=== PATIENT | female | born 1960 | race Hispanic/Latino ===

== ENCOUNTER 2019-07-19 19:08 | Emergency (ER) | payer SELFPAY ==
--- OUTSIDE RECORDS SUMMARY | 2019-07-19 19:11 | XMS REPORT ---
:1960 [facility] [place] [address] Care Team Providers Name Role Phone Unavailable Unavailable Unavailable Problems This patient has no known problems. Allergies, Adverse Reactions, Alerts This patient has no known allergies or adverse reactions. Medications This patient has no known medications. Results Test Description Test Time Test Comments Text Results Atomic Results Result Comments SCR MAMM BILATERAL TALI 2019-06-26 14:21:14 - SCR MAMM BILATERAL TALI CAD CAD DIGITAL DIGITALBILATERAL DIGITAL SCREENING MAMMOGRAM 3D/2D WITH CAD: 06/25/2019CLINICAL: Asymptomatic. Digital breast tomosynthesis was performed in addition to routine CC and MLO views. Current mammographic images were evaluated by either a [employer] M-Vu or a [employer] ImageChecker CAD (computer aided detection system). Comparison is made to exams dated 10/21/2003 mammogram, 10/26/1999, and 09/19/1998 [facility]-. There are scattered fibroglandular tissues in both breasts. No suspicious mass, architectural distortion, malignant type calcification, or lymph node abnormality detected. Breast architecture is stable compared to prior exams.IMPRESSION: NEGATIVEThere is no mammographic evidence of malignancy. Resume annual screening mammography in one year. Mary brasher/arsh:06/26/2019 14:21:14 Shipping Receiving Manager: Savannah Parmar MM, [facility]ography[facility] sent: BIRADS 1-2 Normal Mammogram BI-RADS: 1 Negative
[2019-07-19 20:14] LABS: Absolute Lymphocytes (CBC) 2.1 K/uL (0.7-4.9); Basophils % 0.8 % (0-1.3); Hematocrit 40.2 % (36.0-45.0); Lymphocytes % 32.2 % (15.3-44.8); MPV 9.5 fL (7.6-11.3); Protime INR 0.95
[2019-07-19 20:30] LABS: ALT/SGPT 32 U/L (12-78); AST/SGOT 14 U/L (15-37); Albumin 3.6 g/dL (3.4-5.0); Alkaline Phosphatase 74 U/L (45-117); BUN Blood Urea Nitrogen 14 mg/dL (7-18); Bicarbonate 28 mmol/L (21-32); Bilirubin Direct < 0.1 mg/dL (0-0.2); Bilirubin Total 0.2 mg/dL (0.2-1.0); Glucose Level 228 mg/dL (74-106); Magnesium 2.1 mg/dL (1.8-2.4); NT PRO-BNP 44 pg/mL (<125); Potassium 3.8 mmol/L (3.5-5.1); Protein, Total 7.3 g/dL (6.4-8.2); Sodium Level 138 mmol/L (136-145); Troponin (Emerg Dept Use Only) < 0.02 ng/mL (0.0-0.045)
--- NOTE | 2019-07-19 20:58 | RAD REPORT ---
EXAM DESCRIPTION: Alicia Single View07/19/2019 8:07 pm CLINICAL HISTORY: Chest pain COMPARISON: 2017 FINDINGS: The lungs appear clear of acute infiltrate. The heart is upper limits normal size IMPRESSION: No acute abnormalities displayed
--- NOTE | 2019-07-19 21:11 | EDPHYS ---
Physician Documentation [facility] Name: Khalida Lundberg Age: 59 yrs Sex: Female : 1960 Arrival Date: 07/19/2019 Time: 19:10 Bed 27 Private MD: ED Physician Buzz Gusman HPI: 07/19 21:07 This 59 yrs old Female presents to ER via Ambulatory with complaints of Chest jr8 Pain. 21:07 Onset: The symptoms/episode began/occurred acutely, today. Associated signs and jr8 symptoms: The patient has no apparent associated signs or symptoms. Modifying factors: The patient symptoms are alleviated by nothing, the patient symptoms are aggravated by nothing. The patient has not experienced similar symptoms in the past. The patient has not recently seen a physician. Chest pain that started this morning. Pressure in nature. Started with radiation to jaw and down arm this afternoon. Came to be evaluated at that time . Historical: - Allergies: 19:30 Iodine; ae4 - Home Meds: 19:30 Glucovance 5-500 mg Oral tab 1 tab 2 times per day [Active]; Humulin 70/30 100 unit/mL ae4 (70-30) Sub-Q susp [Active]; losartan 25 mg Oral tab 1 tab once daily [Active]; pantoprazole 40 mg Oral TbEC 1 tab once daily [Active]; - PMHx: 19:30 Diabetes - NIDDM; GERD; Hypertension; ae4 19:33 Myocardial infarction; ae4 - Immunization history:: Flu vaccine is not up to date. - Social history:: Smoking status: Patient/guardian denies using tobacco. - Ebola Screening: : Patient denies travel to an Ebola-affected area in the 21 days before illness onset. ROS: 21:07 Eyes: Negative for injury, pain, redness, and discharge, ENT: Negative for injury, jr8 pain, and discharge, Neck: Negative for injury, pain, and swelling, Respiratory: Negative for shortness of breath, cough, wheezing, and pleuritic chest pain, Abdomen/GI: Negative for abdominal pain, nausea, vomiting, diarrhea, and constipation, Back: Negative for injury and pain, MS/Extremity: Negative for injury and deformity, Skin: Negative for injury, rash, and discoloration, Neuro: Negative for headache, weakness, numbness, tingling, and seizure. 21:07 Cardiovascular: Positive for chest pain, Negative for edema, orthopnea, palpitations, paroxysmal nocturnal dyspnea. Exam: 21:07 Eyes: Pupils equal round and reactive to light, extra-ocular motions intact. Lids and jr8 lashes normal. Conjunctiva and sclera are non-icteric and not injected. Cornea within normal limits. Periorbital areas with no swelling, redness, or edema. ENT: Nares patent. No nasal discharge, no septal abnormalities noted. Tympanic membranes are normal and external auditory canals are clear. Oropharynx with no redness, swelling, or masses, exudates, or evidence of obstruction, uvula midline. Mucous membranes moist. Neck: Trachea midline, no thyromegaly or masses palpated, and no cervical lymphadenopathy. Supple, full range of motion without nuchal rigidity, or vertebral point tenderness. No Meningismus. Cardiovascular: Regular rate and rhythm with a normal S1 and S2. No gallops, murmurs, or rubs. Normal PMI, no JVD. No pulse deficits. Respiratory: Lungs have equal breath sounds bilaterally, clear to auscultation and percussion. No rales, rhonchi or wheezes noted. No increased work of breathing, no retractions or nasal flaring. Abdomen/GI: Soft, non-tender, with normal bowel sounds. No distension or tympany. No guarding or rebound. No evidence of tenderness throughout. Back: No spinal tenderness. No costovertebral tenderness. Full range of motion. Skin: Warm, dry with normal turgor. Normal color with no rashes, no lesions, and no evidence of cellulitis. MS/ Extremity: Pulses equal, no cyanosis. Neurovascular intact. Full, normal range of motion. Neuro: Awake and alert, GCS 15, oriented to person, place, time, and situation. Cranial nerves II-XII grossly intact. Motor strength 5/5 in all extremities. Sensory grossly intact. Cerebellar exam normal. Normal gait. Vital Signs: 19:27 BP 146 / 98; Pulse 75; Resp 18; Temp 98.1(O); Pulse Ox 98% on R/A; Weight 97.07 kg (R); ae4 20:30 BP 106 / 70; Pulse 70; Resp 22; Pulse Ox 98% on R/A; aj1 MDM: 19:38 Patient medically screened. jr8 21:07 Data reviewed: vital signs, nurses notes, lab test result(s), EKG, radiologic studies, jr8 plain films. Data interpreted: Pulse oximetry: on room air is 98 %. Interpretation: normal. Counseling: I had a detailed discussion with the patient and/or guardian regarding: the historical points, exam findings, and any diagnostic results supporting the discharge/admit diagnosis, lab results, radiology results. 21:21 ED course: Discussed with patient that although her first rounds of cardiac enzymes jr8 were normal and all other blood work, imaging, and EKG were without acute findings. Still recommend admission to fully r/o cardiac related chest pain. Patient stated that her pain is completely resolved and needs to go home to take care of her mother. Understands potential risk but would come back if worse. 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 07/19 19:37 Order name: Basic Metabolic Panel; Complete Time: 21:05 07/19 19:37 Order name: CBC with Diff; Complete Time: 21:07/19 19:37 Order name: LFT's; Complete Time: 21:05 07/19 19:37 Order name: Magnesium; Complete Time: 21:05 07/19 19:37 Order name: NT PRO-BNP; Complete Time: 21:05 07/19 19:37 Order name: PT-INR; Complete Time: 21:05 07/19 19:37 Order name: Troponin (emerg Dept Use Only); Complete Time: 21:05 07/19 19:37 Order name: XRAY Chest (1 view); Complete Time: 21:05 07/19 19:37 Order name: Cardiac monitoring; Complete Time: 20:07/19 19:37 Order name: EKG - Nurse/Tech; Complete Time: 20:07/19 19:37 Order name: IV Saline Lock; Complete Time: 20:07/19 19:37 Order name: Labs collected and sent; Complete Time: 20:07/19 19:37 Order name: O2 Per Protocol; Complete Time: 20:07/19 19:37 Order name: O2 Sat Monitoring; Complete Time: 20: Administered Medications: No medications were administered Disposition: 07/19/19 21:21 Discharged to Home. Impression: Chest pain, unspecified. - Condition is Stable. - Discharge Instructions: Nonspecific Chest Pain. - Medication Reconciliation Form, Thank You Letter, Antibiotic Education, Prescription Opioid Use form. - Follow up: Benito Downs MD; When: 24 Hours; Reason: Recheck today's complaints, Continuance of care, Re-evaluation by your physician. - Problem is new. - Symptoms are resolved. Signatures: Dispatcher [employer] EDMS Arabella Chang RN RN aj1 Ginny Ely RN RN fc Sha Dinh PA PA jr8 Héctor Langley RN RN ae4 Corrections: (The following items were deleted from the chart) 21:18 21:11 Hospitalization Ordered by Sujey Kenney MD for Observation. Preliminary jr8 diagnosis is Chest pain, unspecified. Bed requested for Telemetry/MedSurg (observation). Status is Observation. Condition is Stable. Problem is new. Symptoms are unchanged. UTI on Admission? No. jr8 21:24 21:07 Counseling: I had a detailed discussion with the patient and/or guardian jr8 regarding: the historical points, exam findings, and any diagnostic results supporting the discharge/admit diagnosis, lab results, radiology results, the need for further work-up and treatment in the hospital, jr8 22:13 21:21 07/19/2019 21:21 Discharged to Home. Impression: Chest pain, unspecified. fc Condition is Stable. Forms are Medication Reconciliation Form, Thank You Letter, Antibiotic Education, Prescription Opioid Use. Follow up: Bneito Downs; When: 24 Hours; Reason: Recheck today's complaints, Continuance of care, Re-evaluation by your physician. Problem is new. Symptoms are resolved. jr8
--- NOTE | 2019-07-19 21:11 | ER ---
Nurse's Notes [facility] Name: Khalida Lundberg Age: 59 yrs Sex: Female : 1960 Arrival Date: 07/19/2019 Time: 19:10 Bed 27 Private MD: Diagnosis: Chest pain, unspecified Presentation: 07/19 19:30 Presenting complaint: Patient states: Patient states she has been having chest pain for ae4 the last 3 days and it has increased today. Reports pain radiates to left jaw. Transition of care: patient was not received from another setting of care. Onset of symptoms was July 17, 2019. Risk Assessment: Do you want to hurt yourself or someone else? Patient reports no desire to harm self or others. Care prior to arrival: Medication(s) given: Patient took 12.5 of metoprolol and 2 "baby aspirin". 19:30 Method Of Arrival: Ambulatory ae4 19:30 Acuity: TEVIN 2 ae4 19:34 Initial Sepsis Screen: Does the patient meet any 2 criteria? No. Patient's initial aj1 sepsis screen is negative. Does the patient have a suspected source of infection? Yes:. Triage Assessment: 19:27 General: Appears in no apparent distress. uncomfortable, obese, Behavior is ae4 cooperative, anxious. Pain: Complains of pain in xyphoid area and mid-sternal area Pain radiates to chest, suprasternal notch, left submandibular area and left sternocleidomastoid Pain currently is 7 out of 10 on a pain scale. Neuro: Level of Consciousness is awake, alert, obeys commands, Oriented to person, place, time, situation. Cardiovascular: Patient's skin is warm and dry. Respiratory: Airway is patent Respiratory effort is even, unlabored, Respiratory pattern is regular, symmetrical, Breath sounds are clear bilaterally. GI: Reports nausea. Historical: - Allergies: 19:30 Iodine; ae4 - Home Meds: 19:30 Glucovance 5-500 mg Oral tab 1 tab 2 times per day [Active]; Humulin 70/30 100 unit/mL ae4 (70-30) Sub-Q susp [Active]; losartan 25 mg Oral tab 1 tab once daily [Active]; pantoprazole 40 mg Oral TbEC 1 tab once daily [Active]; - PMHx: 19:30 Diabetes - NIDDM; GERD; Hypertension; ae4 19:33 Myocardial infarction; ae4 - Immunization history:: Flu vaccine is not up to date. - Social history:: Smoking status: Patient/guardian denies using tobacco. - Ebola Screening: : Patient denies travel to an Ebola-affected area in the 21 days before illness onset. Screenin:34 Abuse screen: Denies threats or abuse. Denies injuries from another. Nutritional aj1 screening: No deficits noted. Tuberculosis screening: No symptoms or risk factors identified. 22:10 Fall Risk mg2 Assessment: 19:34 General: Appears in no apparent distress. comfortable, Behavior is calm, cooperative, aj1 appropriate for age. Pain: Complains of pain in mid-sternal area Pain radiates to left sternocleidomastoid and left submandibular area and suprasternal notch Pain currently is 7 out of 10 on a pain scale. Quality of pain is described as aching, Pain began 2-3 days ago. Neuro: Level of Consciousness is awake, alert, obeys commands, Oriented to person, place, time, situation, Speech is normal, Facial symmetry appears normal. Cardiovascular: Reports chest pain, Heart tones S1 S2 present Patient's skin is warm and dry. Respiratory: Airway is patent Respiratory effort is even, unlabored, Respiratory pattern is regular, symmetrical, Breath sounds are clear bilaterally. Denies cough, shortness of breath. GI: No signs and/or symptoms were reported involving the gastrointestinal system. : No signs and/or symptoms were reported regarding the genitourinary system. EENT: No signs and/or symptoms were reported regarding the EENT system. Derm: No signs and/or symptoms reported regarding the dermatologic system. Skin is pink, warm \\T\\ dry. normal. Musculoskeletal: No signs and/or symptoms reported regarding the musculoskeletal system. Circulation, motion, and sensation intact. 20:30 Reassessment: Patient appears in no apparent distress at this time. No changes from aj1 previously documented assessment. Patient and/or family updated on plan of care and expected duration. Pain level reassessed. Patient is alert, oriented x 3, equal unlabored respirations, skin warm/dry/pink. 21:55 Reassessment: Patient appears in no apparent distress at this time. mg2 Vital Signs: 19:27 BP 146 / 98; Pulse 75; Resp 18; Temp 98.1(O); Pulse Ox 98% on R/A; Weight 97.07 kg (R); ae4 20:30 BP 106 / 70; Pulse 70; Resp 22; Pulse Ox 98% on R/A; aj1 ED Course: 19:10 Patient arrived in ED. as 19:20 EKG completed in triage. Results shown to MD. ae4 19:20 Arm band placed on left wrist. ae4 19:32 Triage completed. ae4 19:32 Patient maintains SpO2 saturation greater than 95% on room air. ae4 19:34 Arabella Chang, RN is Primary Nurse. aj1 19:34 Patient has correct armband on for positive identification. personnel monitor on. Pulse aj1 ox on. NIBP on. 19:34 No provider procedures requiring assistance completed. aj1 19:37 Sha Dinh PA is PHCP. jr8 19:37 Buzz Gusman MD is Attending Physician. jr8 20:06 XRAY Chest (1 view) In Process Unspecified. EDMS 21:11 Sujey Kenney MD is Hospitalizing Provider. jr8 21:19 Benito Downs MD is Referral Physician. jr8 22:10 IV discontinued, intact, bleeding controlled, No redness/swelling at site. Pressure mg2 dressing applied. Administered Medications: No medications were administered Outcome: 21:11 Decision to Hospitalize by Provider. jr8 21:21 Discharge ordered by MD. jr8 22:10 Discharged to home ambulatory. mg2 22:10 Condition: stable 22:10 Discharge instructions given to patient, Instructed on discharge instructions, follow mg2 up and referral plans. Demonstrated understanding of instructions, follow-up care. 22:13 Patient left the ED. fc Signatures: Dispatcher [employer] EDMS Arabella Chang, RN RN aj1 Ginny Ely RN RN fc Gemma Chavez as Sha Dinh PA PA jr8 Mark Matos RN RN mg2 Héctor Langley RN RN ae4 Corrections: (The following items were deleted from the chart) 19:26 19:26 EKG completed in triage. Results shown to MD. ae4 ae4
[2019-07-19 22:17] VITALS: TEMP 98.1; O2SAT 98
[2019-07-19 22:18] VITALS: BP 106/70
--- NOTE | 2019-07-21 14:23 | EKG ---
Test Date: 2019-07-19 Test Time: 19:23:56 Dulser: JAJA MEASUREMENT RESULTS: Intervals: Rate: 73 LA: 140 QRSD: 92 QT: 382 QTc: 420 [place]: P: 28 LA: 140 QRS: -5 T: -5 INTERPRETIVE STATEMENTS: Normal sinus rhythm Cannot rule out Anterior infarct, age undetermined Abnormal ECG Compared to ECG 02/12/2016 19:51:28 Myocardial infarct finding now present Electronically Signed On 07-21-19 14:19:33 FUR EXAMINER by Emerson Joshi
== END 2019-07-19 22:13 | disposition home or self-care (01) ==
LOC: ER 19:08
DX: R07.9 Chest pain, unspecified (principal); I10 Essential (primary) hypertension; E11.9 Type 2 diabetes mellitus without complications; I25.2 Old myocardial infarction; Z79.4 Long term (current) use of insulin; Z91.048 Other nonmedicinal substance allergy status
CPT/HCPCS: 36415; 71045; 80048; 80076; 83735; 83880; 84484; 85025; 85610; 93005; 99284

== ENCOUNTER 2019-11-19 09:03 | Emergency (ER) | payer SELFPAY ==
--- OUTSIDE RECORDS SUMMARY | 2019-11-19 09:06 | XMS REPORT ---
:1960 [facility] [place] [address] Care Team Providers Name Role Phone Unavailable [...] mammographic images were evaluated by either a [employer] M-Vu or a [employer] ImageChecker CAD (computer aided detection system). Comparison is made to exams dated 10/21/2003 mammogram, 10/26/1999, and 09/19/1998 [facility]-. There are scattered fibroglandular tissues in both breasts. No suspicious mass, architectural distortion, malignant type calcification, or lymph node abnormality detected. Breast architecture is stable compared to prior exams.IMPRESSION: NEGATIVEThere is no mammographic evidence of malignancy. Resume annual screening mammography in one year. Mary brasher/arsh:06/26/2019 14:21:14 Distributor Advertising Material: Savannah Parmar MM, [facility]ography[facility] sent: BIRADS 1-2 Normal Mammogram BI-RADS: 1 Negative
--- NOTE | 2019-11-19 10:15 | ER ---
Nurse's Notes [facility] Name: Khalida Lundberg Age: 59 yrs Sex: Female : 1960 Arrival Date: 11/19/2019 Time: 09:04 Bed 15 Private MD: Estrada Fitch R Diagnosis: Acute pharyngitis Presentation: 11/18 09:27 Chief complaint: Patient states: Sore throat, body aches and BLAIR that began 3 days ago. ss Coronavirus screen: Patient reports a subjective fever or greater than 100.4F, or cough, or shortness of breath, or difficulty breathing. Patient denies travel on a cruise ship or to a country the [facility] currently lists as an affected area. Patient denies contact with known and/or suspected case of COVID-19. Ebola Screen: Patient denies exposure to infectious person. Patient denies travel to an Ebola-affected area in the 21 days before illness onset. Initial Sepsis Screen: Does the patient meet any 2 criteria? No. Patient's initial sepsis screen is negative. Does the patient have a suspected source of infection? No. Patient's initial sepsis screen is negative. Risk Assessment: Do you want to hurt yourself or someone else? Patient reports no desire to harm self or others. 09:27 Method Of Arrival: Ambulatory 09:27 Acuity: TEVIN 4 ss Historical: - Allergies: 09:28 Iodine; ss - PMHx: 09:28 Diabetes - NIDDM; GERD; Hypertension; Myocardial infarction; ss - Immunization history:: Adult Immunizations up to date. - Social history:: Smoking status: Patient denies any tobacco usage or history of. Screenin:56 Abuse screen: Denies threats or abuse. Denies injuries from another. Nutritional ph screening: No deficits noted. Tuberculosis screening: No symptoms or risk factors identified. Fall Risk None identified. Assessment: 10:00 General: Appears in no apparent distress. comfortable, well groomed, Behavior is calm, ph cooperative, appropriate for age, Denies fever, chills. Pain: Complains of pain in head and throat. Neuro: Level of Consciousness is awake, alert, obeys commands, Oriented to person, place, time, situation. Cardiovascular: Capillary refill < 3 seconds in bilateral fingers Patient's skin is warm and dry. Respiratory: Reports cough that is Airway is patent Respiratory effort is even, unlabored, Respiratory pattern is regular, symmetrical, Breath sounds are clear bilaterally. Denies shortness of breath. GI: No signs and/or symptoms were reported involving the gastrointestinal system. EENT: Throat is reddened bilaterally Reports pain when swallowing. Derm: Skin is intact, is healthy with good turgor, Skin is pink, warm \T\ dry. Musculoskeletal: Circulation, motion, and sensation intact. Range of motion: intact in all extremities. Vital Signs: 09:27 BP 114 / 86; Pulse 80; Resp 16; Temp 97.6(TE); Pulse Ox 96% on R/A; Weight 95.25 kg; ss Height 5 ft. 1 in. (154.94 cm); Pain 6/10; 10:40 BP 117 / 82; Pulse 78; Resp 18; Temp 97.8; Pulse Ox 98% on R/A; ph 09:27 Body Mass Index 39.68 (95.25 kg, 154.94 cm) ED Course: 09:04 Patient arrived in ED. am2 09:05 Estrada Fitch MD is Private Physician. am2 09:06 [facility]etha Lawson FNP-C [facility]. snw 09:06 Buzz Gusman MD is Attending Physician. snw 09:28 Triage completed. ss 09:56 Zandra Elliott, RN is Primary Nurse. ph 09:56 Arm band placed on Patient placed in an exam room, on a stretcher. ph 09:57 Patient has correct armband on for positive identification. Bed in low position. Call ph light in reach. Side rails up X 1. Pulse ox on. NIBP on. 10:13 Estrada Fitch MD is Referral Physician. snw 10:40 No provider procedures requiring assistance completed. Patient did not have IV access ph during this emergency room visit. Administered Medications: No medications were administered Outcome: 10:14 Discharge ordered by . snw 10:40 Discharged to home ambulatory. ph 10:40 Condition: good 10:40 Discharge instructions given to patient, Instructed on discharge instructions, follow up and referral plans. medication usage, Demonstrated understanding of instructions, follow-up care, medications, Prescriptions given X 1. 10:41 Patient left the ED. ph Signatures: Letha Lawson FNP-C FNP-Csnw Andreea Martin RN RN Zandra Elliott RN RN Rody Zimmerman am2 Corrections: (The following items were deleted from the chart) Chief complaint: Patient states: Sore throat, body aches and BLAIR that began 3 days ss ago : Coronavirus screen: Patient denies fever greater than 100.4F, cough, shortness of ss breath, or difficulty breathing. Proceed with normal triage process. ss
--- NOTE | 2019-11-19 10:15 | EDPHYS ---
Physician Documentation [facility] Name: Khalida Lundberg Age: 59 yrs Sex: Female : 1960 Arrival Date: 11/19/2019 Time: 09:04 Bed 15 Private MD: Estrada Fitch R ED Physician Buzz Gusman HPI: 11/18 09:58 This 59 yrs old Female presents to ER via Ambulatory with complaints of Cough, snw Sore Throat, Body ache, Headache. 09:58 The patient or guardian reports sore throat, headache . Onset: The symptoms/episode snw began/occurred suddenly, 3 day(s) ago, and became persistent. Modifying factors: The symptoms are alleviated by nothing. Associated signs and symptoms: Pertinent positives: sore throat. It is unknown whether or not the patient has had similar symptoms in the past. The patient has not recently seen a physician. Historical: - Allergies: 09:28 Iodine; ss - PMHx: 09:28 Diabetes - NIDDM; GERD; Hypertension; Myocardial infarction; ss - Immunization history:: Adult Immunizations up to date. - Social history:: Smoking status: Patient denies any tobacco usage or history of. ROS: 09:58 Eyes: Negative for injury, pain, redness, and discharge. snw 09:58 Neck: Negative for injury, pain, and swelling, Cardiovascular: Negative for chest pain, palpitations, and edema, Respiratory: Negative for shortness of breath, cough, wheezing, and pleuritic chest pain, Abdomen/GI: Negative for abdominal pain, nausea, vomiting, diarrhea, and constipation, Back: Negative for injury and pain, : Negative for injury, bleeding, discharge, and swelling, MS/Extremity: Negative for injury and deformity, Skin: Negative for injury, rash, and discoloration. 09:58 Constitutional: Positive for body aches, fatigue, malaise. 09:58 ENT: Positive for sore throat. 09:58 Neuro: Positive for headache. Exam: 09:58 Constitutional: This is a well developed, well nourished patient who is awake, alert, snw and in no acute distress. Head/Face: Normocephalic, atraumatic. Eyes: Pupils equal round and reactive to light, extra-ocular motions intact. Lids and lashes normal. Conjunctiva and sclera are non-icteric and not injected. Cornea within normal limits. Periorbital areas with no swelling, redness, or edema. ENT: Nares patent. No nasal discharge, no septal abnormalities noted. Tympanic membranes are normal and external auditory canals are clear. Oropharynx with no redness, swelling, or masses, exudates, or evidence of obstruction, uvula midline. Mucous membranes moist. Neck: Trachea midline, no thyromegaly or masses palpated, and no cervical lymphadenopathy. Supple, full range of motion without nuchal rigidity, or vertebral point tenderness. No Meningismus. Chest/axilla: Normal chest wall appearance and motion. Nontender with no deformity. No lesions are appreciated. Cardiovascular: Regular rate and rhythm with a normal S1 and S2. No gallops, murmurs, or rubs. Normal PMI, no JVD. No pulse deficits. Respiratory: Lungs have equal breath sounds bilaterally, clear to auscultation and percussion. No rales, rhonchi or wheezes noted. No increased work of breathing, no retractions or nasal flaring. Abdomen/GI: Soft, non-tender, with normal bowel sounds. No distension or tympany. No guarding or rebound. No evidence of tenderness throughout. Back: No spinal tenderness. No costovertebral tenderness. Full range of motion. Skin: Warm, dry with normal turgor. Normal color with no rashes, no lesions, and no evidence of cellulitis. MS/ Extremity: Pulses equal, no cyanosis. Neurovascular intact. Full, normal range of motion. Neuro: Awake and alert, GCS 15, oriented to person, place, time, and situation. Cranial nerves II-XII grossly intact. Motor strength 5/5 in all extremities. Sensory grossly intact. Cerebellar exam normal. Normal gait. Vital Signs: 09:27 BP 114 / 86; Pulse 80; Resp 16; Temp 97.6(TE); Pulse Ox 96% on R/A; Weight 95.25 kg; ss Height 5 ft. 1 in. (154.94 cm); Pain 6/10; 10:40 BP 117 / 82; Pulse 78; Resp 18; Temp 97.8; Pulse Ox 98% on R/A; ph 09:27 Body Mass Index 39.68 (95.25 kg, 154.94 cm) ss MDM: 09:23 Patient medically screened. snw 10:15 Data reviewed: vital signs, nurses notes. Data interpreted: Pulse oximetry: on room air snw is 96 %. Interpretation: acceptable. Counseling: I had a detailed discussion with the patient and/or guardian regarding: the historical points, exam findings, and any diagnostic results supporting the discharge/admit diagnosis, the presence of at least one elevated blood pressure reading (>120/80) during this emergency department visit, the need for outpatient follow up, for definitive care, to return to the emergency department if symptoms worsen or persist or if there are any questions or concerns that arise at home. Special discussion: I have referred the patient to see his PCP for further evaluation of high blood pressure. Based on the history and exam findings, there is no indication for further emergent testing or inpatient evaluation. I discussed with the patient/guardian the need to see the primary care provider for further evaluation of the symptoms. 11/18 09:52 Order name: Strep; Complete Time: 10:14 snw 11/18 10:24 Order name: Throat Culture EDMS Administered Medications: No medications were administered Disposition: 11:47 Co-signature as Attending Physician, Buzz Gusman MD. rn Disposition: 11/19/19 10:14 Discharged to Home. Impression: Acute pharyngitis. - Condition is Stable. - Discharge Instructions: Pharyngitis, Rehydration, Adult. - Prescriptions for Zyrtec 10 mg Oral Tablet - take 1 tablet by ORAL route once daily As needed; 20 tablet. - Medication Reconciliation Form, Thank You Letter, Antibiotic Education, Prescription Opioid Use form. - Follow up: Estrada Fitch MD; When: 2 - 3 days; Reason: Recheck today's complaints, Continuance of care, Re-evaluation by your physician. Follow up: Emergency Department; When: As needed; Reason: Worsening of condition. Signatures: Dispatcher [employer] EDMS Letha Lawson, TOUCH UP WORKER-C TOUCH UP WORKER-Csnw Buzz Gusman MD MD rn Smirch, Shelby, RN RN Zandra Smith RN RN ph Corrections: (The following items were deleted from the chart) 10:41 10:14 11/19/2019 10:14 Discharged to Home. Impression: Acute pharyngitis. Condition is ph Stable. Forms are Medication Reconciliation Form, Thank You Letter, Antibiotic Education, Prescription Opioid Use. Follow up: Estrada Fitch; When: 2 - 3 days; Reason: Recheck today's complaints, Continuance of care, Re-evaluation by your physician. Follow up: Emergency Department; When: As needed; Reason: Worsening of condition. snbasilia
[2019-11-19 10:51] VITALS: BP 117/82; TEMP 97.8; O2SAT 98
== END 2019-11-19 10:41 | disposition home or self-care (01) ==
LOC: ER 09:03
DX: J02.9 Acute pharyngitis, unspecified (principal); I10 Essential (primary) hypertension; Z91.048 Other nonmedicinal substance allergy status
CPT/HCPCS: 87070; 87081; 99283

== ENCOUNTER 2020-04-21 14:50 | Emergency (ER) | payer SELFPAY, OTHER ==
--- OUTSIDE RECORDS SUMMARY | 2020-04-21 14:52 | XMS REPORT | Continuity of Care Document ---
:1960 Author Organization [facility] t Address [address] [place] [address] Care Team Providers Name Role Phone Unavailable Unavailable Unavailable Problems This patient has no known problems. Allergies, Adverse Reactions, Alerts This patient has no known allergies or adverse reactions. Medications This patient has no known medications. Procedures This patient has no known procedures. Results Test Description Test Time Test Comments Results Result Sourc e Comments SCR MAMM 2019-06-26 - SCR MAMM BILATERAL BILATERAL TALI 14:21:14 TALI CAD CAD DIGITAL DIGITALBILATERAL DIGITAL SCREENING MAMMOGRAM 3D/2D WITH CAD: 06/25/2019CLINICAL: Asymptomatic. Digital breast tomosynthesis was performed in addition to routine CC and MLO views. Current mammographic images were evaluated by either a Card Isle M-Vu or a Roomoramagic ImageChecker CAD (computer aided detection system). Comparison is made to exams dated 10/21/2003 mammogram, 10/26/1999, and 09/19/1998 [facility]. There are scattered fibroglandular tissues in both breasts. No suspicious mass, architectural distortion, malignant type calcification, or lymph node abnormality detected. Breast architecture is stable compared to prior exams.IMPRESSION: NEGATIVEThere is no mammographic evidence of malignancy. Resume annual screening mammography in one year. Mary brasher/penrad:06/26/2019 14:21:14 Pretzel Packer: Savannah Parmar MM, [facility] sent: BIRADS 1-2 Normal Mammogram BI-RADS: 1 Negative
[2020-04-21 16:59] LABS: Absolute Lymphocytes (CBC) 1.3 K/uL (0.7-4.9); Basophils % 0.4 % (0-1.3); Hematocrit 40.3 % (36.0-45.0); MPV 9.1 fL (7.6-11.3); RBC Red Blood Cell Count 4.61 M/uL (3.86-4.86)
[2020-04-21 17:39] LABS: ALT/SGPT 35 U/L (12-78); AST/SGOT 22 U/L (15-37); Albumin 3.4 g/dL (3.4-5.0); Alkaline Phosphatase 89 U/L (45-117); BUN Blood Urea Nitrogen 10 mg/dL (7-18); Bicarbonate 25 mmol/L (21-32); Bilirubin Direct < 0.1 mg/dL (0-0.2); Bilirubin Total 0.3 mg/dL (0.2-1.0); Ferritin 191.5 ng/mL (8-388); Glucose Level 303 mg/dL (74-106); Lipase 90 U/L (73-393); Potassium 4.2 mmol/L (3.5-5.1); Sodium Level 136 mmol/L (136-145); Troponin (Emerg Dept Use Only) < 0.02 ng/mL (0.0-0.045)
--- NOTE | 2020-04-21 18:15 | RAD REPORT ---
EXAM DESCRIPTION: Alicia Single View04/21/2020 6:00 pm CLINICAL HISTORY: cough COMPARISON: none FINDINGS: Mild bilateral pulmonary opacities. . The heart is normal size IMPRESSION: Mild bilateral pulmonary opacities probably pneumonia
--- NOTE | 2020-04-21 18:57 | EDPHYS ---
Physician Documentation [facility] Name: Khalida Lundberg Age: 59 yrs Sex: Female : 1960 Arrival Date: 04/21/2020 Time: 14:53 Bed 2 Private MD: ED Physician Abdi Kirkland HPI: 04/21 18:22 This 59 yrs old Female presents to ER via Ambulatory with complaints of Fever, kdr Shortness Of Breath, Body Aches. 18:22 The patient reports fever, not measured (subjective). Onset: The symptoms/episode kdr began/occurred gradually, 5 day(s) ago. Modifying factors: there are no obvious modifying factors. Associated signs and symptoms: Pertinent positives: arthralgias, backache, shortness of breath, Change in smell and taste. Severity of symptoms: At their worst the symptoms were mild in the emergency department the symptoms are unchanged. The patient has not experienced similar symptoms in the past. The patient has not recently seen a physician. Historical: - Allergies: 15:00 Iodine; ll1 - PMHx: 15:00 Diabetes - NIDDM; GERD; Hypertension; Myocardial infarction; ll1 - PSHx: 15:00 None; ll1 - Immunization history:: Flu vaccine is not up to date. - Social history:: Smoking status: Patient denies any tobacco usage or history of. Patient/guardian denies using alcohol, street drugs, tobacco products. ROS: 18:22 Constitutional: Negative for weight loss - has had fever and chills Eyes: Negative for kdr injury, pain, redness, and discharge, ENT: Negative for injury, pain, and discharge, Neck: Negative for injury, pain, and swelling, Cardiovascular: Negative for chest pain, palpitations, and edema, Abdomen/GI: Negative for abdominal pain, nausea, vomiting, diarrhea, and constipation, Back: Negative for injury and pain, : Negative for injury, bleeding, discharge, and swelling, MS/Extremity: Negative for injury and deformity, Skin: Negative for injury, rash, and discoloration, Neuro: Negative for headache, weakness, numbness, tingling, and seizure activity. Psych: Negative for depression, anxiety, suicide ideation, homicidal ideation, and hallucinations, Allergy/Immunology: Negative for hives, rash, and allergies, Endocrine: Negative for neck swelling, polydipsia, polyuria, polyphagia, and marked weight changes, Hematologic/Lymphatic: Negative for swollen nodes, abnormal bleeding, and unusual bruising. 18:22 Respiratory: Positive for cough, shortness of breath, Negative for hemoptysis, orthopnea. Exam: 16:50 ECG was reviewed by the Attending Physician. kdr 18:22 Constitutional: This is a well developed, well nourished patient who is awake, alert, kdr and in no acute distress. Head/Face: Normocephalic, atraumatic. Eyes: Pupils equal round and reactive to light, extra-ocular motions intact. Lids and lashes normal. Conjunctiva and sclera are non-icteric and not injected. Cornea within normal limits. Periorbital areas with no swelling, redness, or edema. Neck: Trachea midline, no thyromegaly or masses palpated, and no cervical lymphadenopathy. Supple, full range of motion without nuchal rigidity, or vertebral point tenderness. No Meningismus. Chest/axilla: Normal chest wall appearance and motion. Nontender with no deformity. No lesions are appreciated. Cardiovascular: Regular rate and rhythm with a normal S1 and S2. No gallops, murmurs, or rubs. Normal PMI, no JVD. No pulse deficits. Respiratory: Lungs have equal breath sounds bilaterally, clear to auscultation and percussion. No rales, rhonchi or wheezes noted. No increased work of breathing, no retractions or nasal flaring. Abdomen/GI: Soft, non-tender, with normal bowel sounds. No distension or tympany. No guarding or rebound. No evidence of tenderness throughout. Back: No spinal tenderness. No costovertebral tenderness. Full range of motion. Skin: Warm, dry with normal turgor. Normal color with no rashes, no lesions, and no evidence of cellulitis. MS/ Extremity: Pulses equal, no cyanosis. Neurovascular intact. Full, normal range of motion. Neuro: Awake and alert, GCS 15, oriented to person, place, time, and situation. Cranial nerves II-XII grossly intact. Motor strength 5/5 in all extremities. Sensory grossly intact. Cerebellar exam normal. Normal gait. Psych: Awake, alert, with orientation to person, place and time. Behavior, mood, and affect are within normal limits. Vital Signs: 15:00 BP 132 / 79; Pulse 99; Resp 18; Temp 100.0; Pulse Ox 98% ; Pain 2/10; ll1 16:58 BP 141 / 78; Pulse 92; Resp 18; Pulse Ox 97% on R/A; ph 18:12 BP 126 / 80; Pulse 89; Resp 18; Pulse Ox 97% on R/A; ph 19:35 BP 127 / 82; Pulse 87; Resp 18; Temp 98.9; Pulse Ox 98% on R/A; ph MDM: 18:22 Data reviewed: vital signs, nurses notes, lab test result(s), radiologic studies. kdr Counseling: I had a detailed discussion with the patient and/or guardian regarding: the historical points, exam findings, and any diagnostic results supporting the discharge/admit diagnosis, lab results, radiology results. 18:57 Patient medically screened. kdr 04/21 16:29 Order name: Blood Culture Adult (2) ph 04/21 16:29 Order name: BMP ph 04/21 16:29 Order name: C-Reactive Protein ph 04/21 16:29 Order name: CBC with Diff; Complete Time: 17:31 ph 04/21 16:29 Order name: COVID-19 ph 04/21 16:29 Order name: D-Dimer; Complete Time: 17:31 ph 04/21 16:29 Order name: Ferritin; Complete Time: 17:45 ph 04/21 16:29 Order name: Flu; Complete Time: 18:56 ph 04/21 16:29 Order name: Lactate; Complete Time: 17:31 ph 04/21 16:29 Order name: LFT's; Complete Time: 17:45 ph 04/21 16:29 Order name: Lipase; Complete Time: 17:45 ph 04/21 16:29 Order name: Procalcitonin; Complete Time: 18:56 ph 04/21 16:29 Order name: PT-INR; Complete Time: 17:31 ph 04/21 16:29 Order name: Ptt, Activated; Complete Time: 17:31 ph 04/21 16:29 Order name: Strep; Complete Time: 18:56 ph 04/21 16:29 Order name: Troponin (emerg Dept Use Only); Complete Time: 17:45 ph 04/21 16:29 Order name: CXR XRAY; Complete Time: 18:17 ph 04/21 16:29 Order name: EKG; Complete Time: 16:30 ph 04/21 16:29 Order name: Cardiac monitoring; Complete Time: 17:02 ph 04/21 16:29 Order name: Document PUI#; Complete Time: 17:02 ph 04/21 16:29 Order name: Droplet/Contact Precautions; Complete Time: 16:30 ph 04/21 16:29 Order name: EKG - Nurse/Tech; Complete Time: 17:02 ph 04/21 16:29 Order name: Blood Culture EDKY 04/21 16:29 Order name: Basic Metabolic Panel; Complete Time: 17:45 EDMS 04/21 16:29 Order name: C-Reactive Protein; Complete Time: 17:45 EDKY 04/21 18:25 Order name: Throat Culture EDKY 04/21 16:29 Order name: IV Start; Complete Time: 17:02 ph 04/21 16:29 Order name: Labs collected and sent; Complete Time: 17:02 ph 04/21 16:29 Order name: Notify Health Dept [phone]/ ; Complete Time: 17:02 ph 04/21 16:29 Order name: O2 Per Protocol; Complete Time: 17:01 ph 04/21 16:29 Order name: O2 Sat Monitoring; Complete Time: 17:01 ph EC:50 Rate is 86 beats/min. Rhythm is regular, Normal Sinus Rhythm with No ectopy. QRS Bethany kdr is Normal. [place] interval is normal. QRS interval is normal. QT interval is normal. Clinical impression: Normal ECG. Administered Medications: 19:34 Drug: predniSONE 10 mg Route: PO; ph 19:35 Follow up: Response: No adverse reaction ph 19:35 Drug: AZITHromycin 500 mg Route: PO; ph 19:35 Follow up: Response: No adverse reaction ph Disposition: 04/21/20 18:57 Discharged to Home. Impression: Pneumonia, unspecified organism - COVID test pending, Shortness of breath. - Condition is Stable. - Discharge Instructions: Community-Acquired Pneumonia, Adult, Shortness of Breath, [id number], Cough, Adult, [id number]. - Prescriptions for Zithromax Z- Andriy 250 mg Oral Tablet - take 1 tablet by ORAL route once daily for 4 days; 4 tablet. Albuterol Sulfate 90 mcg/actuation - inhale 1-2 puff by INHALATION route every 4-6 hours; 1 Inhaler. Orapred ODT 10 mg Oral Tablet, Rapid Dissolve - take 1 tablet by ORAL route 2 times per day; 6 tablet. - Medication Reconciliation Form, Thank You Letter, Antibiotic Education form. - Follow up: Private Physician; When: 2 - 3 days; Reason: If symptoms return, Further diagnostic work-up, Recheck today's complaints, Continuance of care, Re-evaluation by your physician. - Problem is an ongoing problem. - Symptoms have improved. - Notes: While on the steroids, you will have to watch your blood sugar often. Signatures: Dispatcher [employer] EDMS Abdi Kirkland MD MD kdr Zandra Elliott RN RN Dallin Naranjo RN RN ll1 Corrections: (The following items were deleted from the chart) 18:57 18:57 04/21/2020 18:57 Discharged to Home. Impression: Pneumonia, unspecified organism kdr - COVID test pending. Condition is Stable. Forms are Medication Reconciliation Form, Thank You Letter, Antibiotic Education, Prescription Opioid Use. Follow up: Private Physician; When: 2 - 3 days; Reason: If symptoms return, Further diagnostic work-up, Recheck today's complaints, Continuance of care, Re-evaluation by your physician. Problem is an ongoing problem. Symptoms have improved. kdr 19:36 18:57 04/21/2020 18:57 Discharged to Home. Impression: Pneumonia, unspecified organism ph - COVID test pending; Shortness of breath. Condition is Stable. Forms are Medication Reconciliation Form, Thank You Letter, Antibiotic Education, Prescription Opioid Use. Follow up: Private Physician; When: 2 - 3 days; Reason: If symptoms return, Further diagnostic work-up, Recheck today's complaints, Continuance of care, Re-evaluation by your physician. Problem is an ongoing problem. Symptoms have improved. kdr
--- NOTE | 2020-04-21 18:57 | ER ---
Nurse's Notes [facility] Name: Khalida Lundberg Age: 59 yrs Sex: Female : 1960 Arrival Date: 04/21/2020 Time: 14:53 Bed 2 Private MD: Diagnosis: Pneumonia, unspecified organism-COVID test pending;Shortness of breath Presentation: 04/21 15:00 Chief complaint: Patient states: Cough, SOB, fever, fatigue, body aches for 5 days. No ll1 taste or smell, is also sick. Coronavirus screen: Client denies travel out of the [place] in the last 14 days. chills, cough unrelated to allergies, difficulty breathing, fatigue, fever, loss of taste or smell, Client presents with at least one sign or symptom that may indicate coronavirus-19. Standard/surgical mask placed on the client. Ebola Screen: Patient denies travel to an Ebola-affected area in the 21 days before illness onset. Initial Sepsis Screen: Does the patient meet any 2 criteria? HR > 90 bpm. No. Patient's initial sepsis screen is negative. Risk Assessment: Do you want to hurt yourself or someone else? Patient reports no desire to harm self or others. Onset of symptoms was April 16, 2020. 15:00 Acuity: TEVIN 3 ll1 15:00 Method Of Arrival: Ambulatory ll1 16:57 Initial Sepsis Screen: Does the patient have a suspected source of infection? Yes: ph Productive cough/pneumonia. Historical: - Allergies: 15:00 Iodine; ll1 - PMHx: 15:00 Diabetes - NIDDM; GERD; Hypertension; Myocardial infarction; ll1 - PSHx: 15:00 None; ll1 - Immunization history:: Flu vaccine is not up to date. - Social history:: Smoking status: Patient denies any tobacco usage or history of. Patient/guardian denies using alcohol, street drugs, tobacco products. Screenin:57 Abuse screen: Denies threats or abuse. Denies injuries from another. Nutritional ph screening: No deficits noted. Tuberculosis screening: No symptoms or risk factors identified. Fall Risk None identified. Assessment: 16:55 General: Appears in no apparent distress. comfortable, obese, well groomed, Behavior is ph calm, cooperative, appropriate for age, Reports chills for fever for > 3 days. Pain: Complains of pain in anterior aspect of left upper chest Is intermittent. Neuro: Level of Consciousness is awake, alert, obeys commands, Oriented to person, place, time, situation. Cardiovascular: Reports chest pain, lightheadedness, shortness of breath, Rhythm is regular Chest pain is located in left anterior chest wall episodes are intermittent is aggravated by breathing. Respiratory: Reports shortness of breath on exertion cough that is persistent Airway is patent Respiratory effort is even, unlabored, Respiratory pattern is regular, symmetrical. GI: No signs and/or symptoms were reported involving the gastrointestinal system. Derm: Skin is intact, is healthy with good turgor, Skin is pink, warm \T\ dry. Musculoskeletal: Circulation, motion, and sensation intact. Range of motion: intact in all extremities. 18:12 Reassessment: Patient appears in no apparent distress at this time. Patient and/or ph family updated on plan of care and expected duration. Pain level reassessed. Patient is alert, oriented x 3, equal unlabored respirations, skin warm/dry/pink. Pt resting quietly, awaiting X-ray results, VSS. Vital Signs: 15:00 BP 132 / 79; Pulse 99; Resp 18; Temp 100.0; Pulse Ox 98% ; Pain 2/10; ll1 16:58 BP 141 / 78; Pulse 92; Resp 18; Pulse Ox 97% on R/A; ph 18:12 BP 126 / 80; Pulse 89; Resp 18; Pulse Ox 97% on R/A; ph 19:35 BP 127 / 82; Pulse 87; Resp 18; Temp 98.9; Pulse Ox 98% on R/A; ph ED Course: 14:53 Patient arrived in ED. ds1 15:02 Triage completed. ll1 15:02 Arm band placed on. ll1 15:05 Abdi Kirkland MD is Attending Physician. kdr 15:48 Zandra Elliott RN is Primary Nurse. ph 16:45 Initial lab(s) drawn, by me, sent to lab. EKG done, by ED staff, reviewed by Abdi Kirkland MD. Inserted saline lock: 22 gauge in right antecubital area, using aseptic technique. Blood collected. 16:57 Patient has correct armband on for positive identification. Placed in gown. Bed in low ph position. Call light in reach. Side rails up X 1. Pulse ox on. NIBP on. Door closed. Noise minimized. Warm blanket given. 18:01 CXR XRAY In Process Unspecified. EDMS 19:35 No provider procedures requiring assistance completed. IV discontinued, intact, ph bleeding controlled, No redness/swelling at site. Pressure dressing applied. Administered Medications: 19:34 Drug: predniSONE 10 mg Route: PO; ph 19:35 Follow up: Response: No adverse reaction ph 19:35 Drug: AZITHromycin 500 mg Route: PO; ph 19:35 Follow up: Response: No adverse reaction ph Outcome: 18:57 Discharge ordered by . kdr 19:36 Discharged to home via wheelchair. ph 19:36 Condition: good 19:36 Discharge instructions given to patient, Instructed on discharge instructions, follow up and referral plans. medication usage, Demonstrated understanding of instructions, follow-up care, medications, Prescriptions given X 3. 19:36 Patient left the ED. ph Signatures: Dispatcher [employer] EDMS Abdi Kirkland MD MD [facility] Rosa Michele ds1 Zandra Elliott, RN RN ph Dallin Naranjo RN RN ll1
[2020-04-21] MEDS ORDERED: AZITHROMYCIN 250 MG TAB ONE (19:34)
[2020-04-21] MEDS ORDERED: predniSONE 10 MG TAB ONE (19:35)
--- NOTE | 2020-04-22 10:45 | EKG ---
Test Date: 2020-04-21 Test Time: 16:41:11 Band Teacher: DELMA MEASUREMENT RESULTS: Intervals: Rate: 86 OK: 142 QRSD: 86 QT: 352 QTc: 421 [place]: P: 27 OK: 142 QRS: 16 T: 25 INTERPRETIVE STATEMENTS: Normal sinus rhythm Normal ECG Compared to ECG 07/19/2019 19:23:56 Myocardial infarct finding no longer present Electronically Signed On 04-22-20 10:43:30 CDT by Emerson Joshi
[2020-04-26 03:45] VITALS: BP 127/82; TEMP 98.9; O2SAT 98
== END 2020-04-21 19:36 | disposition home or self-care (01) ==
LOC: ER 14:50
DX: U07.1 COVID-19 (principal); J18.9 Pneumonia, unspecified organism; I10 Essential (primary) hypertension; Z91.048 Other nonmedicinal substance allergy status
CPT/HCPCS: 36415; 71045; 80048; 80076; 82728; 83605; 83690; 84145; 84484; 85025; 85379; 85610; 85730; 86140; 87040; 87070; 87081; 87804; 93005; 99284; J7512; U0002

== ENCOUNTER 2020-04-22 19:25 | Inpatient (IN) | payer OTHER, SELFPAY ==
--- OUTSIDE RECORDS SUMMARY | 2020-04-22 19:28 | XMS REPORT | Continuity of Care Document ---
:1960 Author Organization [facility] t Address [address] [place] [address] Care Team Providers Name Role Phone Unavailable [...] mammographic images were evaluated by either a TrustedAd M-Vu or a Vput[employer]ic ImageChecker CAD (computer aided detection system). Comparison is made to exams dated 10/21/2003 mammogram, 10/26/1999, and 09/19/1998 [facility]. There are scattered fibroglandular tissues in both breasts. No suspicious mass, architectural distortion, malignant type calcification, or lymph node abnormality detected. Breast architecture is stable compared to prior exams.IMPRESSION: NEGATIVEThere is no mammographic evidence of malignancy. Resume annual screening mammography in one year. Mary brasher/penrad:06/26/2019 14:21:14 Instrument Inspector: Savannah Parmar MM, [facility] sent: BIRADS 1-2 Normal Mammogram BI-RADS: 1 Negative
[2020-04-22] MEDS ORDERED: ACETAMINOPHEN 500 MG TAB ONE (19:43)
[2020-04-22] MEDS ORDERED: NA CHLORIDE 0.9% 1,000 ML ONE (19:43)
[2020-04-22 19:54] LABS: Absolute Lymphocytes (CBC) 1.4 K/uL (0.7-4.9); Basophils % 0.3 % (0-1.3); Hematocrit 39.4 % (36.0-45.0); Lymphocytes % 24.4 % (15.3-44.8); MPV 9.3 fL (7.6-11.3); RBC Red Blood Cell Count 4.59 M/uL (3.86-4.86)
[2020-04-22 19:57] LABS: Protime INR 0.96
[2020-04-22 20:12] LABS: ALT/SGPT 30 U/L (12-78); AST/SGOT 23 U/L (15-37); Albumin 3.2 g/dL (3.4-5.0); Alkaline Phosphatase 88 U/L (45-117); Amylase 27 U/L (25-115); BUN Blood Urea Nitrogen 12 mg/dL (7-18); Bicarbonate 26 mmol/L (21-32); Bilirubin Direct < 0.1 mg/dL (0-0.2); Bilirubin Total 0.2 mg/dL (0.2-1.0); CKMB Creatine Kinase MB 2.3 ng/mL (0.3-3.6); Creatine Phosphokinase 166 U/L (26-192); Glucose Level 221 mg/dL (74-106); Lipase 90 U/L (73-393); Protein, Total 7.5 g/dL (6.4-8.2); Sodium Level 139 mmol/L (136-145); Troponin (Emerg Dept Use Only) < 0.02 ng/mL (0.0-0.045)
[2020-04-22] MEDS ORDERED: CEFTRIAXONE/SWI 1gm 1 GM/10 ML SYR ONE (20:37)
--- NOTE | 2020-04-22 21:10 | RAD REPORT ---
EXAM DESCRIPTION: RAD - Chest Single View - 04/22/2020 8:22 pm CLINICAL HISTORY: SOB, COVID symptoms, chest pain COMPARISON: Portable April 21 TECHNIQUE: AP portable chest image was obtained 04/22/2020 8:22 pm . FINDINGS: Low lung volumes and large body habitus limit assessment. No focal dense consolidation see n. There is interstitial opacification and hazy alveolar opacities present. COVID-19 pneumonia would certainly be possible. Trachea is midline. Heart size is normal. Mediastinum widened by exam limitations. No measurable pleu ral effusion and no pneumothorax. No acute bony abnormality seen. No acute aortic findings suspected. IMPRESSION: Limited portable imaging due to low lung volumes and large body habitus. Patchy lung parenchymal opacities are present. This pattern can be seen with a COVID-19 pneumonia and follow-up can be obtained as warranted.
[2020-04-22 22:01] LABS: Urine Blood NEGATIVE (NEG); Urine Glucose TRACE (NEG); Urine Protein NEGATIVE (NEG); Urine Specific Gravity 1.015 (1.005-1.030)
[2020-04-22 22:11] LABS: Urine Bacteria <20 /HPF (<20); Urine Culture Reflex Order NOT NEEDED; Urine RBC NONE SEEN /HPF (NONE SEEN)
[2020-04-22] MEDS ORDERED: ALBUTEROL INHALER 60 PUFF/8 GM IH ONE (22:23)
--- NOTE | 2020-04-23 | EDPHYS ---
Physician Documentation [facility] Name: Khalida Lundberg Age: 59 yrs Sex: Female : 1960 Arrival Date: 04/22/2020 Time: 19:27 Bed 7 Private MD: ED Physician Kalia Randall HPI: 04/22 19:52 This 59 yrs old Female presents to ER via EMS with complaints of Shortness Of mh7 Breath. 19:52 The patient has shortness of breath with light activity. Onset: The symptoms/episode mh7 began/occurred 1 day(s) ago. Duration: The symptoms are intermittent, with no pattern. The patient's shortness of breath is aggravated by light activity, is alleviated by nothing. Associated signs and symptoms: Pertinent positives: chest pain, non-productive cough, dizziness, fever, Pertinent negatives: productive cough, diaphoresis, hemoptysis, loss of consciousness, nausea, numbness in extremities, visual changes, vomiting. Severity of symptoms: At their worst the symptoms were moderate today, in the emergency department the symptoms are unchanged. The patient has been recently seen at the [facility] Emergency Department, yesterday. Historical: - Allergies: 19:35 Iodine; lp1 - Home Meds: 19:35 Glucovance 5-500 mg Oral tab 1 tab 2 times per day [Active]; losartan 25 mg Oral tab 1 lp1 tab once daily [Active]; omeprazole 40 mg Oral cpDR 1 cap once daily [Active]; Sharon Oral [Active]; aspirin 81 mg Oral TbEC 1 tab once daily [Active]; Novolin 70/30 [place] Sub-Q [Active]; - PMHx: 19:35 Diabetes - NIDDM; GERD; Hypertension; Myocardial infarction; lp1 - PSHx: 19:35 None; lp1 - Immunization history:: Adult Immunizations up to date. - Social history:: Smoking status: Patient denies any tobacco usage or history of. ROS: 19:52 Eyes: Negative for injury, pain, redness, and discharge, ENT: Negative for injury, mh7 pain, and discharge, Neck: Negative for injury, pain, and swelling, Abdomen/GI: Negative for abdominal pain, nausea, vomiting, diarrhea, and constipation, Back: Negative for injury and pain, : Negative for injury, bleeding, discharge, and swelling, MS/Extremity: Negative for injury and deformity, Skin: Negative for injury, rash, and discoloration, Neuro: Negative for headache, weakness, numbness, tingling, and seizure, Psych: Negative for depression, anxiety, suicide ideation, homicidal ideation, and hallucinations, Allergy/Immunology: Negative for hives, rash, and allergies, Endocrine: Negative for neck swelling, polydipsia, polyuria, polyphagia, and marked weight changes, Hematologic/Lymphatic: Negative for swollen nodes, abnormal bleeding, and unusual bruising. Exam: 19:52 Head/Face: Normocephalic, atraumatic. Eyes: Pupils equal round and reactive to light, mh7 extra-ocular motions intact. Lids and lashes normal. Conjunctiva and sclera are non-icteric and not injected. Cornea within normal limits. Periorbital areas with no swelling, redness, or edema. Neck: Trachea midline, no thyromegaly or masses palpated, and no cervical lymphadenopathy. Supple, full range of motion without nuchal rigidity, or vertebral point tenderness. No Meningismus. Chest/axilla: Normal chest wall appearance and motion. Nontender with no deformity. No lesions are appreciated. Cardiovascular: Regular rate and rhythm with a normal S1 and S2. No gallops, murmurs, or rubs. Normal PMI, no JVD. No pulse deficits. 19:52 Abdomen/GI: Soft, non-tender, with normal bowel sounds. No distension or tympany. No guarding or rebound. No evidence of tenderness throughout. Back: No spinal tenderness. No costovertebral tenderness. Full range of motion. Skin: Warm, dry with normal turgor. Normal color with no rashes, no lesions, and no evidence of cellulitis. MS/ Extremity: Pulses equal, no cyanosis. Neurovascular intact. Full, normal range of motion. Neuro: Awake and alert, GCS 15, oriented to person, place, time, and situation. Cranial nerves II-XII grossly intact. Motor strength 5/5 in all extremities. Sensory grossly intact. Cerebellar exam normal. Normal gait. Psych: Awake, alert, with orientation to person, place and time. Behavior, mood, and affect are within normal limits. 19:52 Constitutional: The patient appears in no acute distress, alert, awake, uncomfortable. 19:52 Respiratory: the patient does not display signs of respiratory distress, Respirations: normal, Breath sounds: rhonchi, that are mild, are located in both bases, Respiratory rate: 20 04/23 00:08 ECG was reviewed by the Attending Physician. 7 Vital Signs: 04/22 19:23 BP 144 / 69; rv 19:29 Pulse 103; Resp 20; Temp 102.1(O); Pulse Ox 96% on R/A; Weight 95.25 kg (R); Height 5 lp1 ft. 1 in. (154.94 cm); 20:31 Temp 101.2(O); rv 20:31 BP 117 / 53; Pulse 90; Resp 25; Temp 101.2(O); Pulse Ox 97% on R/A; rv 21:00 BP 97 / 61; Pulse 84; Resp 28; Pulse Ox 96% on R/A; rv 21:31 BP 103 / 53; Pulse 33; Temp 100.(O); Pulse Ox 96% on R/A; mt2 22:24 BP 106 / 62; Pulse 79; Resp 21; Pulse Ox 98% on 2 lpm NC; rv 23:00 BP 104 / 58; Pulse 79; Resp 21; Pulse Ox 99% on 2 lpm NC; rv 23:30 BP 103 / 58; Pulse 79; Resp 23; Pulse Ox 99% on 2 lpm NC; rv 04/23 00:02 BP 105 / 84; Pulse 79; Resp 28; Pulse Ox 99% on R/A; Pain 0/10; mt2 01:00 BP 107 / 57; Pulse 75; Resp 27; Pulse Ox 98% on 2 lpm NC; rv 02:00 BP 103 / 59; Pulse 69; Resp 24; Pulse Ox 98% on 2 lpm NC; vc 04/22 19:29 Body Mass Index 39.68 (95.25 kg, 154.94 cm) lp1 MDM: 04/22 19:42 Patient medically screened. mh7 23:53 Differential diagnosis: Anemia Anxiety Reaction asthma, Bronchitis CHF exacerbation, mh7 Chronic Obstructive Pulmonary Disease Myocardial Infarction pneumonia, Pneumothorax Psychogenic pulmonary edema, Pulmonary Embolism. Data reviewed: vital signs, nurses notes, old medical records, lab test result(s), cardiac enzymes, CBC, electrolytes, urinalysis, EKG, radiologic studies, plain films. Data interpreted: Pulse oximetry: on room air is 99 %. Interpretation: normal. Counseling: I had a detailed discussion with the patient and/or guardian regarding: the historical points, exam findings, and any diagnostic results supporting the discharge/admit diagnosis, lab results, radiology results. Response to treatment: the patient's symptoms have resolved after treatment, the patient's blood pressure is in an acceptable range, mental status has returned to baseline, the patient no longer shows bradycardia, the patient is not short of breath, the patient is not tachycardic, the patient's pain is gone, the patient's temperature has normalized. 04/23 01:57 ED course: Feels better, NAD but noted to have tachypnea and dyspnea with mild mh7 exertion.. 04/22 19:38 Order name: Amylase, Serum; Complete Time: 20:44 lp1 04/22 19:38 Order name: Basic Metabolic Panel; Complete Time: 20:44 lp1 04/22 19:38 Order name: Blood Culture Adult (2) lp 04/22 19:38 Order name: CBC with Diff; Complete Time: 20:44 lp1 04/22 19:38 Order name: Ckmb; Complete Time: 20:44 lp1 04/22 19:38 Order name: CPK; Complete Time: 20:44 lp1 04/22 19:38 Order name: Lactate; Complete Time: 20:44 lp1 04/22 19:38 Order name: LFT's; Complete Time: 20:44 lp1 04/22 19:38 Order name: Lipase; Complete Time: 20:44 lp1 04/22 19:38 Order name: Procalcitonin; Complete Time: 21:23 lp1 04/22 19:38 Order name: Protime (+inr); Complete Time: 20:44 lp1 04/22 19:38 Order name: Ptt, Activated; Complete Time: 20:44 lp1 04/22 19:38 Order name: Troponin (emerg Dept Use Only); Complete Time: 20:44 lp1 04/22 19:38 Order name: Urine Microscopic Only; Complete Time: 23:01 lp1 04/22 20:07 Order name: Glucose, Ancillary Testing; Complete Time: 20:44 EDMS 04/22 21:23 Order name: PROBNP mh7 04/22 21:24 Order name: NT PRO-BNP; Complete Time: 23:01 EDMS 04/22 21:49 Order name: Urine Dipstick--Ancillary (enter results); Complete Time: 23:01 ar5 04/22 22:53 Order name: D-Dimer; Complete Time: 23:49 rv 04/23 00:44 Order name: COVID-19 lp1 04/23 00:55 Order name: C-Reactive Protein EDMS 04/23 00:55 Order name: Lactate EDMS 04/23 00:55 Order name: Urinalysis EDMS 04/23 00:55 Order name: Basic Metabolic Panel EDMS 04/23 00:55 Order name: Basic Metabolic Panel EDMS 04/23 00:55 Order name: CBC with Automated Diff EDMS 04/23 00:55 Order name: CBC with Automated Diff EDMS 04/23 00:55 Order name: Magnesium EDMS 04/23 00:55 Order name: Magnesium EDMS 04/23 02:34 Order name: SARS-COV-2 RT PCR EDMS 04/22 19:38 Order name: Chest Single View XRAY; Complete Time: 21:23 lp1 04/22 19:38 Order name: Accucheck; Complete Time: 20:15 lp1 04/22 19:38 Order name: Cardiac monitoring; Complete Time: 20:15 lp1 04/22 19:38 Order name: EKG - Nurse/Tech; Complete Time: 19:40 lp1 04/22 19:38 Order name: IV Saline Lock - Large Bore; Complete Time: 20:15 lp1 04/22 19:38 Order name: Labs collected and sent; Complete Time: 20:15 1 04/22 19:38 Order name: O2 Per Protocol; Complete Time: 20:15 lp1 04/22 19:38 Order name: O2 Sat Monitoring; Complete Time: 19:40 lp1 04/22 19:38 Order name: Urine Dipstick-Ancillary (obtain specimen); Complete Time: 01:11 lp1 04/23 00:55 Order name: Consistent Carb (ADA) [address] EDMS 04/23 06:48 Order name: Ferritin EDMS 04/23 07:56 Order name: Glucose, Ancillary Testing EDMS 04/23 14:45 Order name: Glucose, Ancillary Testing EDMS 04/23 18:05 Order name: Glucose, Ancillary Testing EDMS EC:08 Rate is 99 beats/min. Rhythm is regular, Normal Sinus Rhythm. QRS [place] is Normal. MA mh7 interval is normal. QRS interval is normal. QT interval is normal. No Q waves. T waves are Inverted in leads V3, V4. No ST changes noted. Clinical impression: NSR w/ Non-specific ST/T Changes. Administered Medications: 04/22 19:41 Drug: Tylenol 1000 mg Route: PO; ls4 20:31 Follow up: Temp 101.2 Oral; Response: Temperature is decreased rv 19:50 Drug: NS 0.9% 1000 ml Route: IV; Rate: 1 bolus; Site: left forearm; rv 20:30 Follow up: IV Status: Completed infusion; IV Intake: 1000ml rv 20:29 Drug: Rocephin - (cefTRIAXone) 1 grams Route: IVPB; Infused Over: 30 mins; Site: left rv forearm; 21:20 Follow up: Response: No adverse reaction; IV Status: Completed infusion rv 22:16 Drug: Albuterol HFA Inhaler 2 puffs Route: Inhalation; rv Disposition: 04/23 01:57 Co-signature as Attending Physician, Kalia Randall MD. 7 Disposition: 04/23/20 00:15 Hospitalization ordered by Sujey Kenney for Inpatient Admission. Preliminary diagnosis are Pneumonia, Dyspnea. - Bed requested for Intensive Care Unit. - Status is Inpatient Admission. ph - Condition is Stable. - Problem is new. - Symptoms have improved. Signatures: Dispatcher [employer] EDMS Lisa Naranjo RN RN kl Pena, Laura, RN RN lp1 Zandra Elliott RN RN Jocelyn Cobb RN OVI Roger Live RN RN rv Stewart, Lisa, RN RN ls4 Kalia Randall MD MD 7 Corrections: (The following items were deleted from the chart) 00:01 04/22 23:59 04/22/2020 23:59 Patients has left against medical advice. Impression: mh7 Pneumonia; Dyspnea. Patient states they are going to Home. Condition is Stable. Follow up: Private Physician; When: Tomorrow; Reason: If symptoms return, Worsening of condition, Recheck today's complaints, Continuance of care, Re-evaluation by your physician. Problem is an ongoing problem. Symptoms have improved. 7 04/23 00:13 04/22 23:53 Refusal of service: The patient/guardian displays adequate decision making [facility] capability and despite a detailed discussion of alternatives, benefits, risks, and consequences refuses: Admission to the hospital for further work-up and treatment, CT Scan, [facility] 04/23 02:51 00:15 Hospitalization Ordered by Sujey Kenney MD for Inpatient Admission. Preliminary cg diagnosis is Pneumonia; Dyspnea. Bed requested for Telemetry/MedSurg (Inpatient). Status is Inpatient Admission. Condition is Stable. Problem is new. Symptoms have improved. [facility] 17:31 02:51 04/23/2020 00:15 Hospitalization Ordered by Sujey Kenney MD for Inpatient kl Admission. Preliminary diagnosis is Pneumonia; Dyspnea. Bed requested for [facility] ER HOLD. Status is Inpatient Admission. Condition is Stable. Problem is new. Symptoms have improved. 18:42 17:31 04/23/2020 00:15 Hospitalization Ordered by Sujey Kenney MD for Inpatient ph Admission. Preliminary diagnosis is Pneumonia; Dyspnea. Bed requested for Intensive Care Unit. Status is Inpatient Admission. Condition is Stable. Problem is new. Symptoms have improved.
--- NOTE | 2020-04-23 | ER ---
Nurse's Notes [facility] Name: Khalida Lundberg Age: 59 yrs Sex: Female : 1960 Arrival Date: 04/22/2020 Time: 19:27 Bed 7 Private MD: Diagnosis: Pneumonia;Dyspnea Presentation: 04/22 19:29 Chief complaint: EMS states: Called for patient with COVID symptoms, shortness of lp1 breath, chest pain; Day 6 of symptoms; Patient seen here yesterday and swabbed for COVID, results pending. Coronavirus screen: Client denies travel out of the [place] in the last 14 days. cough unrelated to allergies, difficulty breathing, fatigue, fever, shortness of breath, The client indicates previous COVID test results are pending. Date of collection: April 21, 2020. Ebola Screen: No symptoms or risks identified at this time. Initial Sepsis Screen: Does the patient meet any 2 criteria? Temp <36.0*C (96.8*F)) or > 38.3*C (100.9*F). HR > 90 bpm. Yes Does the patient have a suspected source of infection? Yes: Productive cough/pneumonia. Risk Assessment: Do you want to hurt yourself or someone else? Patient reports no desire to harm self or others. Onset of symptoms was April 22, 2020. 19:29 Method Of Arrival: EMS: [facility] lp1 19:29 Acuity: TEVIN 2 lp1 Triage Assessment: 19:43 General: Appears ill. Respiratory: the patient has moderate shortness of breath. rv Respiratory: Airway is patent Breath sounds are coarse bilaterally. Onset: The symptoms/episode began/occurred gradually. Historical: - Allergies: 19:35 Iodine; lp1 - Home Meds: 19:35 Glucovance 5-500 mg Oral tab 1 tab 2 times per day [Active]; losartan 25 mg Oral tab 1 lp1 tab once daily [Active]; omeprazole 40 mg Oral cpDR 1 cap once daily [Active]; Sharon Oral [Active]; aspirin 81 mg Oral TbEC 1 tab once daily [Active]; Novolin 70/30 [place] Sub-Q [Active]; - PMHx: 19:35 Diabetes - NIDDM; GERD; Hypertension; Myocardial infarction; lp1 - PSHx: 19:35 None; lp1 - Immunization history:: Adult Immunizations up to date. - Social history:: Smoking status: Patient denies any tobacco usage or history of. Screenin:36 Abuse screen: Denies threats or abuse. Denies injuries from another. Nutritional lp1 screening: No deficits noted. Tuberculosis screening: No symptoms or risk factors identified. 19:44 Fall Risk None identified. rv Assessment: 19:42 General: Appears ill, Behavior is calm, cooperative. Pain: Complains of pain in chest. rv Neuro: Level of Consciousness is awake, alert, obeys commands, Oriented to person, place, time, situation. Cardiovascular: Patient's skin is warm and dry. Rhythm is sinus tachycardia. Respiratory: Reports shortness of breath at rest on exertion cough that is persistent Airway is patent Respiratory effort is even, unlabored, Breath sounds are coarse bilaterally. Derm: Skin is intact. 22:25 Reassessment: patient verbalized feeling well. ambulation done, oxygen saturation at rv 96% room air. oxygen treatment started at 2lpm nasal cannula. albuterol puff given as ordered. Neuro: Level of Consciousness is awake, alert, obeys commands, Oriented to person, place, time, situation. 04/23 00:27 Reassessment: patient is for admission. patient verbalized understanding. awaiting rv admission orders. + exhaustion with activity. 01:06 Reassessment: awaiting covid swab result. rv 02:52 Reassessment: PT IS ADMITTED ED HOLD. PLEASE DEFER TO [facility] CHARTING. mt2 Vital Signs: 04/22 19:23 BP 144 / 69; rv 19:29 Pulse 103; Resp 20; Temp 102.1(O); Pulse Ox 96% on R/A; Weight 95.25 kg (R); Height 5 lp1 ft. 1 in. (154.94 cm); 20:31 Temp 101.2(O); rv 20:31 BP 117 / 53; Pulse 90; Resp 25; Temp 101.2(O); Pulse Ox 97% on R/A; rv 21:00 BP 97 / 61; Pulse 84; Resp 28; Pulse Ox 96% on R/A; rv 21:31 BP 103 / 53; Pulse 33; Temp 100.(O); Pulse Ox 96% on R/A; mt2 22:24 BP 106 / 62; Pulse 79; Resp 21; Pulse Ox 98% on 2 lpm NC; rv 23:00 BP 104 / 58; Pulse 79; Resp 21; Pulse Ox 99% on 2 lpm NC; rv 23:30 BP 103 / 58; Pulse 79; Resp 23; Pulse Ox 99% on 2 lpm NC; rv 04/23 00:02 BP 105 / 84; Pulse 79; Resp 28; Pulse Ox 99% on R/A; Pain 0/10; mt2 01:00 BP 107 / 57; Pulse 75; Resp 27; Pulse Ox 98% on 2 lpm NC; rv 02:00 BP 103 / 59; Pulse 69; Resp 24; Pulse Ox 98% on 2 lpm NC; vc 04/22 19:29 Body Mass Index 39.68 (95.25 kg, 154.94 cm) lp1 ED Course: 04/22 19:27 Patient arrived in ED. rv 19:30 Kalia Randall MD is Attending Physician. mh7 19:30 Maintain EMS IV. Dressing intact. Good blood return noted. Site clean \T\ dry. Gauge \T\ rv site: G20 LEFT FOREARM. 19:34 Triage completed. lp1 19:34 Arm band placed on. lp1 19:35 Droplet isolation initiated. lp1 19:42 Roger Live RN is Primary Nurse. rv 19:44 Patient has correct armband on for positive identification. Placed in gown. Bed in low rv position. Call light in reach. lunchroom monitor on. Pulse ox on. NIBP on. 20:23 Chest Single View XRAY In Process Unspecified. EDMS 04/23 00:14 Sujey Kenney MD is Hospitalizing Provider. 7 02:49 No provider procedures requiring assistance completed. Patient admitted, IV remains in mt2 place. Administered Medications: 04/22 19:41 Drug: Tylenol 1000 mg Route: PO; ls4 20:31 Follow up: Temp 101.2 Oral; Response: Temperature is decreased rv 19:50 Drug: NS 0.9% 1000 ml Route: IV; Rate: 1 bolus; Site: left forearm; rv 20:30 Follow up: IV Status: Completed infusion; IV Intake: 1000ml rv 20:29 Drug: Rocephin - (cefTRIAXone) 1 grams Route: IVPB; Infused Over: 30 mins; Site: left rv forearm; 21:20 Follow up: Response: No adverse reaction; IV Status: Completed infusion rv 22:16 Drug: Albuterol HFA Inhaler 2 puffs Route: Inhalation; rv Intake: 20:30 IV: 1000ml; Total: 1000ml. rv Outcome: 04/23 00:15 Decision to Hospitalize by Provider. 7 02:50 Admitted to ER Hold. Please see [facility] for further documentation. mt2 02:50 Condition: stable 02:50 Instructed on the need for admit. 18:42 Patient left the ED. ph Signatures: Dispatcher [employer] EDMS Clementina Gavin RN RN lp1 Zandra Elliott RN RN ph Roger Live RN RN rv Stewart, Lisa, RN RN 4 Stacy Palomares RN RN vc Holmes, Maurice, MD MD [facility] Benita Vigil RN RN mt2 Corrections: (The following items were deleted from the chart) 00:28 00:27 Reassessment: patient is for admission. patient verbalized understanding. rv awaiting admission orders. rv
--- NOTE | 2020-04-23 01:06 | P.HP ---
Certification for Inpatient Patient admitted to: Observation With expected LOS: <2 Midnights Patient will require the following post-hospital care: None Practitioner: I am a practitioner with admitting privileges, knowledge of patient current condition, hospital course, and medical plan of care. Services: Services provided to patient in accordance with Admission requirements found in Title 42 Section 412.3 of the Code of Federal Regulations <Eliot Bolanos - Last Filed: 04/23/20 01:00> Patient History Date of Service: 04/23/20 Reason for admission: Covid PNA/ Hypoxia History of Present Illness: 59-year-old female with past medical history of IN, hypertension, type 2 diabetes presents to the emergency room complaining of worsening shortness of breath and worsening dyspnea on exertion. Patient was seen in the ER yesterday for similar complaints. She was discharged home on oral antibiotics. Today the patient returns stating that she is unable to complete her ADL goals because she can barely walk to the bathroom without getting winded. In the emergency room patient is alert and oriented x3. She is in no distress. Patient's oxygen levels dropped into the mid to low 80s with minimal exertion. At rest patient's O2 saturations are above 92%. Patient does not wear oxygen at home. She is also noted to have an elevated D-dimer of 825 but she is allergic to IV contrast and does not tolerate a CT PE protocol. Patient did have a V/Q scan in 2013 at that time she had her IN. Chest x-ray shows a likely Covid pneumonia. In the emergency room patient's temperature was noted to be 102.1, pulse of 103, respirations of 20, oxygen saturations of 96% at room air. Patient be placed in observation and further evaluated. Home medications list reviewed: No - Past Medical/Surgical History Diabetic: Yes -: diabetes -: hypertension -: Hyperlipidemia -: heart attack -: cardiac catheterization Psychosocial/ Personal History: Lives at home with family - Family History Family History: Reviewed- Non-Contributory - Social History Smoking Status: Never smoker Alcohol use: No CD- Drugs: No Caffeine use: Yes Place of Residence: Home <Eliot Bolanos - Last Filed: 04/23/20 01:00> Date of Service: 04/24/20 <Sujey Kenney - Last Filed: 04/24/20 11:57> Allergies iodine Allergy (Mild, Verified 06/16/12 14:55) Anaphylaxis Home Medications: Aspirin 81 mg PO DAILY 06/21/14 Glyburide/Metformin HCl [Glucovance 2.5-500 mg Tablet] 5 - 500 mg PO BID 06/21/14 Insulin 70/30 NPH/Reg Human [Novolin 70/30*] 20 unit SQ DAILY 06/21/14 Fexofenadine HCl [Sharon Allergy] 1 tab PO DAILY 04/23/20 Losartan Potassium 25 mg PO DAILY 04/23/20 Omeprazole [Prilosec] 40 mg PO DAILY 04/23/20 Review of Systems General: As per HPI Eyes: Unremarkable ENT: Unremarkable Respiratory: Shortness of Breath, SOB with Excertion Cardiovascular: Unremarkable Gastrointestinal: Unremarkable Genitourinary: Unremarkable Musculoskeletal: Unremarkable Integumentary: Unremarkable Neurological: Unremarkable Lymphatics: Unremarkable <Eliot Bolanos - Robb Filed: 04/23/20 01:00> Physical Examination - Vital Signs Temperature: 102.1 F Blood Pressure: 144/69 Pulse: 103 Respirations: 20 Pulse Ox (%): 96 (RA) - Physical Exam General: Alert, In no apparent distress, Oriented x3 HEENT: Atraumatic, Normocephalic, PERRLA, Mucous membr. moist/pink Neck: Supple, Other (Trachea midline) Respiratory: Diminished, Rhonchi/gurgles (Bibasilar) Cardiovascular: No edema, Normal pulses Capillary refill: <2 Seconds Gastrointestinal: Normal bowel sounds, Soft and benign, Non-distended Musculoskeletal: No swelling, No contractures Integumentary: No breakdown, No significant lesion, No tenderness/swelling Neurological: Normal gait, Normal speech, Normal strength at 5/5 x4 extr, Normal tone - Studies Laboratory Data (last 24 hrs) 04/22/20 19:35: PT 11.3, INR 0.96, APTT 20.3 L 04/22/20 19:35: WBC 5.6 D, Hgb 13.5, Hct 39.4, Plt Count 209 04/22/20 19:35: Sodium 139, Potassium 4.0, BUN 12, Creatinine 0.66, Glucose 221 H, Total Bilirubin 0.2, AST 23, ALT 30, Alkaline Phosphatase 88, Amylase 27, Lipase 90 <Eliot Bolanos Filed: 04/23/20 01:00> - Studies Laboratory Data (last 24 hrs) 04/24/20 05:34: Sodium 139, Potassium 4.1, BUN 18, Creatinine 0.64, Glucose 299 H, Phosphorus 3.8, Magnesium 2.1 04/24/20 05:34: WBC 5.7, Hgb 13.1, Hct 38.2, Plt Count 233 <Sujey Kenney - Last Filed: 04/24/20 11:57> Assessment and Plan - Plan Impression: Hypoxia secondary to likely Covid pneumonia with worsening dyspnea on exertion: Essential hypertension: Type 2 diabetes mellitus: History of IN: Plan: Hypoxia secondary to likely Covid pneumonia with worsening dyspnea on exertion: Chest x-ray shows likely Covid pneumonia. Will start IV methylprednisone at 40 mg Q 6 hr. Continue O2 support as necessary. Continue azithromycin 500 mg daily. Patient has an elevated D-dimer but does not tolerate contrast so chest CTA to rule out PE cannot be done. If hypoxia worsens would recommend V/Q scan. Essential hypertension: Will resume all medications once verified. Will start hydralazine 10 mg q.4 hr p.r.n. for systolic blood pressure greater than 160 and diastolic blood pressure greater than 100. Type 2 diabetes mellitus: Will start a sliding scale insulin, Accu-Cheks a.c. HS. Monitor blood glucose History of IN: Resume aspirin 81 mg daily. Discharge Plan: Home Plan to discharge in: 48 Hours - Advance Directives Does patient have a Living Will: No Does patient have a Durable POA for Healthcare: No - Code Status/Comfort Care Code Status Assessed: Yes Time Spent Managing Pts Care (In Minutes): 55 <Eliot Bolanos - Last Filed: 04/23/20 01:00> Date of Service: 04/23/20 Subjective: Patient admitted with shortness of breath and found have COVID-19 pneumonia. Patient is hypoxic. Patient will be admitted for further evaluation. Physical exam: AAO x3 Cardiovascular: Regular rate rhythm no murmur Lungs: Diffuse rhonchi Assessment: 1. COVID-19 pneumonia 2. Hypoxemia Plan: 1. Continue with IV steroid 2. O2 per protocol <Sujey Kenney - Last Filed: 04/24/20 11:57>
[2020-04-23] MEDS: AZITHROMYCIN 250 MG TAB PO SCH ×2 (01:43→21:26)
[2020-04-23] MEDS ORDERED: AZITHROMYCIN 250 MG TAB ONE (01:52)
[2020-04-23] MEDS ORDERED: METHYLPREDNISOLONE 40 MG INJ ONE ×2 (05:41→14:46)
[2020-04-23] MEDS: METHYLPREDNISOLONE 40 MG INJ IV SCH ×3 (05:48→20:39)
[2020-04-23] MEDS: INSULIN -REGULAR HUMAN 50 UNIT/0.5 ML ML SQ SCH ×4 (07:30→20:39)
[2020-04-23] MEDS ORDERED: PNEUMOCOCCAL VACCINE 0.5 ML IMVAC ONE ×2 (08:00→10:29)
[2020-04-23] MEDS: ASPIRIN EC 81 MG TAB PO SCH (10:15)
[2020-04-23] MEDS: ENOXAPARIN 100 MG/ML SYR SQ SCH ×2 (10:15→20:39)
[2020-04-23] MEDS ORDERED: ENOXAPARIN 100 MG/ML SYR SQ ONE (10:29)
[2020-04-23] MEDS ORDERED: ASPIRIN EC 81 MG TAB PO ONE (10:30)
--- NOTE | 2020-04-23 13:48 | EKG ---
Test Date: 2020-04-22 Test Time: 19:35:12 [employer] Supervisor: OCTAVIA MEASUREMENT RESULTS: Intervals: Rate: 99 MN: 132 QRSD: 84 QT: 328 QTc: 420 [place]: P: 29 MN: 132 QRS: -5 T: -2 INTERPRETIVE STATEMENTS: Normal sinus rhythm Cannot rule out Anterior infarct, age undetermined Abnormal ECG Compared to ECG 04/21/2020 16:41:11 Myocardial infarct finding now present Electronically Signed On 04-23-20 13:47:46 CDT by Emerson Joshi
[2020-04-23] MEDS ORDERED: INSULIN -REGULAR HUMAN 50 UNIT/0.5 ML ML ONE ×2 (14:46→18:16)
[2020-04-23] MEDS ORDERED: ACETAMINOPHEN 325 MG TABLET ONE (14:46)
[2020-04-23 20:49] LABS: Urine Appearance CLEAR; Urine Bilirubin NEGATIVE (NEG); Urine Blood NEGATIVE (NEG); Urine Color YELLOW; Urine Glucose 3+ (NEG); Urine Protein NEGATIVE (NEG); Urine Specific Gravity 1.025 (1.005-1.030)
[2020-04-23 20:50] LABS: Urine Microscopic Reflex NO UMIC
[2020-04-24] MEDS: METHYLPREDNISOLONE 40 MG INJ IV SCH ×3 (00:08→11:00)
[2020-04-24] MEDS: ACETAMINOPHEN 500 MG TAB PO PRN ×2 (01:00→23:07)
[2020-04-24 05:41] VITALS: BMI 38.7
[2020-04-24 05:59] LABS: Absolute Lymphocytes (CBC) 0.9 K/uL (0.7-4.9); Basophils % 0.4 % (0-1.3); Hematocrit 38.2 % (36.0-45.0); Lymphocytes % 15.7 % (15.3-44.8); MPV 9.8 fL (7.6-11.3); RBC Red Blood Cell Count 4.39 M/uL (3.86-4.86)
[2020-04-24 06:20] LABS: BUN Blood Urea Nitrogen 18 mg/dL (7-18); Bicarbonate 27 mmol/L (21-32); Ferritin 198.5 ng/mL (8-388); Glucose Level 299 mg/dL (74-106); Magnesium 2.1 mg/dL (1.8-2.4); NT PRO-BNP 87 pg/mL (<125); Phosphorus 3.8 mg/dL (2.5-4.9); Potassium 4.1 mmol/L (3.5-5.1); Sodium Level 139 mmol/L (136-145)
[2020-04-24] MEDS: ASPIRIN EC 81 MG TAB PO SCH (08:04)
[2020-04-24] MEDS: INSULIN -REGULAR HUMAN 50 UNIT/0.5 ML ML SQ SCH ×4 (08:04→20:42)
[2020-04-24] MEDS: ENOXAPARIN 100 MG/ML SYR SQ SCH ×2 (08:04→20:37)
[2020-04-24] MEDS: METHYLPREDNISOLONE 125 MG INJ IV SCH ×3 (11:52→23:08)
[2020-04-24] MEDS ORDERED: METHYLPREDNISOLONE 40 MG INJ IV ONE (12:00)
[2020-04-24] MEDS: METFORMIN HCL 500 MG TAB PO SCH (16:32)
[2020-04-24] MEDS: glyBURIDE 2.5 MG TAB PO SCH (16:45)
[2020-04-24] MEDS: METOPROLOL TAR 50 MG TAB PO SCH (17:41)
[2020-04-24] MEDS: LOSARTAN POTASSIUM 50 MG TABLET PO SCH ×2 (17:43→20:35)
[2020-04-24] MEDS ORDERED: FUROSEMIDE 40 MG/4 ML VIAL IV ONE (18:00)
[2020-04-24] MEDS: AZITHROMYCIN 250 MG TAB PO SCH (20:36)
[2020-04-24] MEDS ORDERED: INSULIN -REGULAR HUMAN 50 UNIT/0.5 ML ML ONE (20:52)
[2020-04-25] MEDS: METOPROLOL TAR 50 MG TAB PO SCH (05:26)
[2020-04-25] MEDS: METHYLPREDNISOLONE 125 MG INJ IV SCH ×2 (05:27→12:07)
[2020-04-25] MEDS: ENOXAPARIN 100 MG/ML SYR SQ SCH (07:34)
[2020-04-25] MEDS: glyBURIDE 2.5 MG TAB PO SCH (07:34)
[2020-04-25] MEDS: METFORMIN HCL 500 MG TAB PO SCH (07:35)
[2020-04-25] MEDS: LOSARTAN POTASSIUM 50 MG TABLET PO SCH (07:35)
[2020-04-25] MEDS: ASPIRIN EC 81 MG TAB PO SCH (07:35)
[2020-04-25] MEDS: INSULIN -REGULAR HUMAN 50 UNIT/0.5 ML ML SQ SCH ×2 (08:08→12:03)
[2020-04-25 08:29] LABS: C-Reactive Protein 22.1 mg/L (<3.00); Ferritin 228.1 ng/mL (8-388)
[2020-04-25 12:29] VITALS: O2SAT 95
[2020-04-25 13:14] VITALS: BP 137/90; TEMP 97.6
--- NOTE | 2020-04-26 00:41 | P.PN ---
Subjective Date of Service: 04/24/20 Subjective: No C/O voiced, Improving respiratory status improved. Patient clinically feeling better. Review of Systems 10-point ROS is otherwise unremarkable Physical Examination - Vital Signs Temperature: 97.6 F Blood Pressure: 137/90 Pulse: 87 Respirations: 22 Pulse Ox (%): 95 - Physical Exam General: Alert, In no apparent distress, Oriented x3 Respiratory: Crackles/rales, Rhonchi/gurgles Cardiovascular: Regular rate/rhythm, Normal S1 S2 Gastrointestinal: Normal bowel sounds, Soft and benign, Non-distended, No tenderness Musculoskeletal: No clubbing, No swelling, No tenderness Neurological: Normal speech, Normal tone, Normal affect Lymphatics: No axilla or inguinal lymphadenopathy - Studies Medications List Reviewed: Yes Assessment & Plan - Problems (Diagnosis) (1) Pneumonia due to COVID-19 virus Status: Acute (2) Diabetes mellitus Onset Date: 06/21/14 Status: Acute - Plan Plan: 1. strict blood sugar control 2. Continue with IV steroids 3. Zithromycin 250 mg IVPB daily 4. Lovenox 40 mg subcu daily; if high risk of PE then will need to do full dose Lovenox therapy 5. O2 per protocol; 6. Check labs including ferritin, CRP, D-dimer, lactic acid, LDH, procalcitonin 7. GI prophylaxis Discharge Plan: Home Plan to discharge in: 48 Hours - Advance Directives Does patient have a Living Will: No Does patient have a Durable POA for Healthcare: No - Code Status/Comfort Care Code Status Assessed: Yes Code Status: Full Code Critical Care: No Time Spent Managing PTS Care (In Minutes): 35
--- NOTE | 2020-04-26 00:42 | P.DS ---
Discharge Date: 04/25/20 Disposition: ROUTINE DISCHARGE Discharge Condition: GOOD Reason for Admission: Covid PNA/ Hypoxia - Problems (1) Pneumonia due to COVID-19 virus Status: Acute (2) Diabetes mellitus Onset Date: 06/21/14 Status: Acute Brief History of Present Illness: 59-year-old female with past medical history of CO, hypertension, type 2 diabetes presents to the emergency room complaining of worsening shortness of breath and worsening dyspnea on exertion. Patient was seen in the ER yesterday for similar complaints. She was discharged home on oral antibiotics. Today the patient returns stating that she is unable to complete her ADL goals because she can barely walk to the bathroom without getting winded. In the emergency room patient is alert and oriented x3. She is in no distress. Patient's oxygen levels dropped into the mid to low 80s with minimal exertion. At rest patient's O2 saturations are above 92%. Patient does not wear oxygen at home. She is also noted to have an elevated D-dimer of 825 but she is allergic to IV contrast and does not tolerate a CT PE protocol. Patient did have a V/Q scan in 2013 at that time she had her CO. Chest x-ray shows a likely Covid pneumonia. In the emergency room patient's temperature was noted to be 102.1, pulse of 103, respirations of 20, oxygen saturations of 96% at room air. Patient be placed in observation and further evaluated. Hospital Course: patient has done well during hospital stay. We went ahead and arrange for home oxygen. Continue on tapering dose of steroid at discharge. Outpatient follow- up with Pulmonary in 2 weeks. Return to the ER symptoms continued to progressively worsen. Vital Signs/Physical Exam: Temp Pulse Resp BP Pulse Ox 97.6 F 87 22 H 137/90 95 04/26/20 00:40 04/26/20 00:40 04/26/20 00:40 04/26/20 00:40 04/26/20 00:40 General: Alert, In no apparent distress, Oriented x3 Laboratory Data at Discharge: WBC 5.7 K/uL (4.3-10.9) 04/24/20 05:34 Hgb 13.1 g/dL (12.0-15.0) 04/24/20 05:34 Hct 38.2 % (36.0-45.0) 04/24/20 05:34 Plt Count 233 K/uL (152-406) 04/24/20 05:34 PT 11.3 SECONDS (9.5-12.5) 04/22/20 19:35 INR 0.96 04/22/20 19:35 APTT 20.3 SECONDS (24.3-36.9) L 04/22/20 19:35 Sodium 139 mmol/L (136-145) 04/24/20 05:34 Potassium 4.1 mmol/L (3.5-5.1) 04/24/20 05:34 BUN 18 mg/dL (7-18) 04/24/20 05:34 Creatinine 0.64 mg/dL (0.55-1.3) 04/24/20 05:34 Glucose 299 mg/dL (74-106) H 04/24/20 05:34 Phosphorus 3.8 mg/dL (2.5-4.9) 04/24/20 05:34 Magnesium 2.1 mg/dL (1.8-2.4) 04/24/20 05:34 Total Bilirubin 0.2 mg/dL (0.2-1.0) 04/22/20 19:35 AST 23 U/L (15-37) 04/22/20 19:35 ALT 30 U/L (12-78) 04/22/20 19:35 Alkaline Phosphatase 88 U/L (45-117) 04/22/20 19:35 Amylase 27 U/L (25-115) 04/22/20 19:35 Lipase 90 U/L (73-393) 04/22/20 19:35 Home Medications: Aspirin 81 mg PO DAILY 06/21/14 Glyburide/Metformin HCl [Glucovance 2.5-500 mg Tablet] 5 - 500 mg PO BID 06/21/14 Insulin 70/30 NPH/Reg Human [Novolin 70/30*] 20 unit SQ DAILY 06/21/14 Fexofenadine HCl [Sharon Allergy] 1 tab PO DAILY 04/23/20 Losartan Potassium 25 mg PO DAILY 04/23/20 Omeprazole [Prilosec] 40 mg PO DAILY 04/23/20 Ascorbic Acid [Vitamin C] 1,000 mg PO BID #60 tablet 04/25/20 Azithromycin Tab [Zithromax*] 250 mg PO BEDTIME #5 tab 04/25/20 Cholecalciferol (Vitamin D3) [Vitamin D 1000 Iu Tab] 1,000 unit PO DAILY #30 tab 04/25/20 Metoprolol Tartrate [Lopressor*] 50 mg PO BID 6AM 6PM #60 tab 04/25/20 Zinc Gluconate [Zinc Gluconate*] 50 mg PO BID #60 tab 04/25/20 predniSONE [Prednisone*] 20 mg PO BID #20 tab 04/25/20 New Medications: Metoprolol Tartrate [Lopressor*] 50 mg PO BID 6AM 6PM #60 tab predniSONE [Prednisone*] 20 mg PO BID #20 tab Ascorbic Acid [Vitamin C] 1,000 mg PO BID #60 tablet Cholecalciferol (Vitamin D3) [Vitamin D 1000 Iu Tab] 1,000 unit PO DAILY #30 tab Zinc Gluconate [Zinc Gluconate*] 50 mg PO BID #60 tab Azithromycin Tab [Zithromax*] 250 mg PO BEDTIME #5 tab Patient Discharge Instructions: OK TO DC IV AND DC HOME. FOLLOW-UP WITH PRIMARY CARE PROVIDER IN 1-2 WEEKS. FOLLOW-UP WITH PULMONARY IN 1-2 WEEKS. RETURN TO THE ER IF symptoms worsen. CALL or TEXT DR. CUEVAS AT [phone] IF ANY QUESTIO NS REGARDING HOSPITAL STAY. PLEASE CALL THE FLOOR AT [phone] IF ANY MEDICATION OR NURSING QUESTIONS. Diet: ADA Activity: Fall precautions Time spent managing pt's care (in minutes): 25
== END 2020-04-25 15:35 | disposition home or self-care (01) | DRG 177 ==
LOC: ER 19:25 → ERHOLD 04-23 00:49 → 3RD-ICU 04-23 18:35 → OBSVTOIN 04-24 08:26
PROVIDERS: ADMIT Hospitalist; ATTEND Hospitalist
DX: U07.1 COVID-19 (principal); J12.89 Other viral pneumonia; E11.9 Type 2 diabetes mellitus without complications; I10 Essential (primary) hypertension; E78.5 Hyperlipidemia, unspecified; K21.9 Gastro-esophageal reflux disease without esophagitis; R09.02 Hypoxemia; I25.2 Old myocardial infarction; Z91.09 Other allergy status, other than to drugs and biological substances; Z79.82 Long term (current) use of aspirin; Z79.899 Other long term (current) drug therapy; Z79.4 Long term (current) use of insulin
CPT/HCPCS: 36415; 71045; 80048; 80076; 81003; 81015; 82150; 82550; 82553; 82728; 82947; 83605; 83615; 83690; 83735; 83880; 84100; 84145; 84484; 85025; 85379; 85610; 85730; 86140; 87040; 90471; 90670; 93005; 94760; 96361; 96365; 99285; G0378; J0696; J1650; J1940; J2920; J2930; J7030; U0003

== ENCOUNTER 2022-02-08 10:52 | Emergency (ER) | payer OTHER, SELFPAY ==
--- OUTSIDE RECORDS SUMMARY | 2022-02-08 10:55 | XMS REPORT | Continuity of Care Document ---
:1960 Author Organization [facility] t Address [address] [place] [address] Care Team Providers Name Role Phone Unavailable Unavailable Unavailable Problems This patient has no known problems. Allergies, Adverse Reactions, Alerts This patient has no known allergies or adverse reactions. Medications This patient has no known medications. Procedures This patient has no known procedures. Results Test Description Test Time Test Comments Results Result [facility] e Comments SCR MAMM 2020-07-15 BILATERAL TALI 08:14:56 CAD DIGITAL Name: Jelly : 1960 Sex: F - SCR MAMM BILATERAL TALI CAD DIGITALBILATERAL DIGITAL SCREENING MAMMOGRAM 3D/2D WITH CAD: 07/02/2020CLINICAL: Asymptomatic. Digital breast tomosynthesis was performed in addition to routine CC and MLO views. Current mammographic images were evaluated by either a [employer] M-Vu or a [employer] ImageChecker CAD (computer aided detection system). Comparison is made to exams dated 06/25/2019 mammogram - [facility], 10/21/2003 mammogram, and 10/26/1999 [facility]. There are scattered fibroglandular tissues in both breasts. There are benign calcifications in the right breast. No suspicious mass, architectural distortion, malignant type calcification, or lymph node abnormality detected. Breast architecture is stable compared to prior exams.IMPRESSION: BENIGNThere is no mammographic evidence of malignancy. Resume annual screening mammography in one year. Huey Mcgill M.D. et/penrad:07/15/2020 08:14:56 Hospital Cleaner: Vero Bello MM, [facility]: BIRADS 1-2 Normal Mammogram BI-RADS: 2 Benign SCR MAMM 2019-06-26 - SCR MAMM BILATERAL BILATERAL TALI 14:21:14 TALI CAD CAD DIGITAL DIGITALBILATERAL DIGITAL SCREENING MAMMOGRAM 3D/2D WITH CAD: 06/25/2019CLINICAL: Asymptomatic. Digital breast tomosynthesis was performed in addition to routine CC and MLO views. Current mammographic images were evaluated by either a [employer] M-Vu or a [employer] ImageChecker CAD (computer aided detection system). Comparison is made to exams dated 10/21/2003 mammogram, 10/26/1999, and 09/19/1998 [facility] There are scattered fibroglandular tissues in both breasts. No suspicious mass, architectural distortion, malignant type calcification, or lymph node abnormality detected. Breast architecture is stable compared to prior exams.IMPRESSION: NEGATIVEThere is no mammographic evidence of malignancy. Resume annual screening mammography in one year. Mary Espino M.D. yasukumar/penrad:06/26/2019 14:21:14 Hospital Cleaner: Savannah Parmar MM, [facility]: BIRADS 1-2 Normal Mammogram BI-RADS: 1 Negative
--- NOTE | 2022-02-08 12:06 | RAD REPORT ---
EXAM DESCRIPTION: RAD - Hip Right 2 View - 02/08/2022 11:59 am CLINICAL HISTORY: Right hip pain FINDINGS: No fracture or dislocation is seen. Mild osteoarthritis involves the right hip mainly consisting mild joint space narrowing and subchondr al sclerosis
--- NOTE | 2022-02-08 12:29 | ER ---
Nurse's Notes [facility] Name: Khalida Lundberg Age: 61 yrs Sex: Female : 1960 Arrival Date: 02/08/2022 Time: 10:55 Bed Waiting Private MD: Diagnosis: Strain of muscle, fascia and tendon of right hip Presentation: 02/08 11:20 Chief complaint: Patient states: Pt stated reached down to clean right foot and heard a vg1 pop Right hip; numbness and pain to Right hip. Denies any injuries. 11:26 Coronavirus screen: Vaccine status: Patient reports being unvaccinated. Client denies vg1 travel out of the [place] in the last 14 days. Ebola Screen: Patient denies exposure to infectious person. Patient denies travel to an Ebola-affected area in the 21 days before illness onset. Initial Sepsis Screen: Does the patient meet any 2 criteria? No. Patient's initial sepsis screen is negative. Does the patient have a suspected source of infection? No. Patient's initial sepsis screen is negative. Risk Assessment: Do you want to hurt yourself or someone else? Patient reports no desire to harm self or others. Onset of symptoms was February 05, 2022. 11:26 Method Of Arrival: Ambulatory vg1 11:26 Acuity: TEVIN 4 vg1 Triage Assessment: 11:29 General: Appears uncomfortable, Behavior is calm, cooperative. Pain: Complains of pain vg1 in Right hip Pain currently is 8 out of 10 on a pain scale. Musculoskeletal: Reports numbness in right leg. Historical: - Allergies: 11:29 Iodine; vg1 11:29 SEAFOOD; vg1 - Home Meds: 11:29 Metoprolol Tartrate Oral [Active]; losartan oral [Active]; Insulin: Novolin 70/30 Sub-Q vg1 [Active]; - PMHx: 11:29 Diabetes - NIDDM; GERD; Hypertension; Myocardial infarction; vg1 - Immunization history:: Client reports having NOT received the Covid vaccine. - Social history:: Smoking status: Patient denies any tobacco usage or history of. - Family history:: not pertinent. - Hospitalizations: : No recent hospitalization is reported. Screenin:12 Abuse screen: Denies threats or abuse. Denies injuries from another. Nutritional ss screening: No deficits noted. Tuberculosis screening: Never had TB. Fall Risk None identified. Assessment: 13:12 General: Appears in no apparent distress. comfortable, Behavior is calm, cooperative. ss Pain: Complains of pain in right hip/ r leg Pain currently is 8 out of 10 on a pain scale. Neuro: Toro Agitation-Sedation Scale (RASS): 0 - Alert and Calm Level of Consciousness is awake, alert, obeys commands, Oriented to person, place, time, situation. Respiratory: Airway is patent Respiratory effort is even, unlabored, Respiratory pattern is regular, symmetrical. Derm: Skin is pink, warm \T\ dry. normal. Vital Signs: 11:26 BP 130 / 71; Pulse 73; Resp 16; Temp 98.2; Pulse Ox 98% on R/A; Weight 85.28 kg; Height vg1 5 ft. 2 in. (157.48 cm); Pain 8/10; 11:26 Body Mass Index 34.39 (85.28 kg, 157.48 cm) vg1 ED Course: 10:55 Patient arrived in ED. rg4 11:29 Triage completed. vg1 11:29 Arm band placed on. vg1 11:32 Buzz Gusman MD is Attending Physician. rn 11:58 X-ray completed. Patient tolerated procedure well. 1 12:00 Hip Right 2 View XRAY In Process Unspecified. EDMS 12:28 Behzad Ewing MD is Referral Physician. rn 13:12 Andreea Martin RN is Primary Nurse. ss 13:12 Patient has correct armband on for positive identification. ss 13:12 No provider procedures requiring assistance completed. Patient did not have IV access ss during this emergency room visit. Administered Medications: 13:14 Not Given (Pt left prior to administration ): traMADol 50 mg PO once ss Medication: 13:12 VIS not applicable for this client. ss Outcome: 12:28 Discharge ordered by . rn 13:12 Discharged to home ambulatory. ss 13:12 Condition: good 13:12 Discharge instructions given to patient, Instructed on discharge instructions, follow up and referral plans. medication usage, Demonstrated understanding of instructions, follow-up care, medications, Prescriptions given X 1. 13:13 Patient left the ED. ss Signatures: Dispatcher [employer] EDMD Rogers Mary Jo 1 Buzz Gusman MD MD rn Smirch, Shelby, RN RN Katya Currie rg4 Laal Cobb RN RN vg1 Corrections: (The following items were deleted from the chart) 11:29 11:20 Chief complaint: Patient states: Pt stated reached down to clean right foot and vg1 heard a pop Right hip; numbness and pain to Right hip vg1
--- NOTE | 2022-02-08 12:29 | EDPHYS ---
Physician Documentation [facility] Name: Khalida Lundberg Age: 61 yrs Sex: Female : 1960 Arrival Date: 02/08/2022 Time: 10:55 Bed Waiting Private MD: ED Physician Buzz Gusman HPI: 02/08 12:23 This 61 yrs old Female presents to ER via Ambulatory with complaints of Hip rn Pain. 12:23 The patient or guardian reports an injury, pain. The complaints affect the right hip. rn 12:23 Onset: The symptoms/episode began/occurred 2 day(s) ago. Modifying factors: The rn symptoms are alleviated by remaining still, the symptoms are aggravated by any movement, weight bearing. Associated signs and symptoms: Pertinent positives: None. Pertinent negatives: abdominal pain, fever, incontinence, vomiting, weakness. Severity of symptoms: At their worst the symptoms were moderate, in the emergency department the symptoms are unchanged. The patient has not experienced similar symptoms in the past. Pt reports showering, bent right hip to clean lower leg, heard a pop, + subjective swelling near right hip, ambulatory but hurts, no direct trauma or fall. No other injury or pain.. Historical: - Allergies: 11:29 Iodine; vg1 11:29 SEAFOOD; vg1 - Home Meds: 11:29 Metoprolol Tartrate Oral [Active]; losartan oral [Active]; Insulin: Novolin 70/30 Sub-Q vg1 [Active]; - PMHx: 11:29 Diabetes - NIDDM; GERD; Hypertension; Myocardial infarction; vg1 - Immunization history:: Client reports having NOT received the Covid vaccine. - Social history:: Smoking status: Patient denies any tobacco usage or history of. - Family history:: not pertinent. - Hospitalizations: : No recent hospitalization is reported. ROS: 12:23 Constitutional: Negative for fever, chills, and weight loss, MS/Extremity: + right hip rn pain Exam: 12:23 Constitutional: This is a well developed, well nourished patient who is awake, alert, rn and in no acute distress. Ambulatory with slight limp MS/ Extremity: Pulses equal, no cyanosis. Neurovascular intact. Full, normal range of motion. Equal circumference. NO focal bony tenderness, + mild swelling without obvious hematoma around right hip. Vital Signs: 11:26 BP 130 / 71; Pulse 73; Resp 16; Temp 98.2; Pulse Ox 98% on R/A; Weight 85.28 kg; Height vg1 5 ft. 2 in. (157.48 cm); Pain 8/10; 11:26 Body Mass Index 34.39 (85.28 kg, 157.48 cm) vg1 MDM: 11:32 Patient medically screened. rn 12:23 Differential diagnosis: hip fracture, intertrochanteric fracture, femoral neck rn fracture, femoral shaft fracture, bursitis, arthritis, strain, ligament injury, tendon injury. Data reviewed: vital signs, nurses notes, radiologic studies, plain films, and as a result, I will discharge patient. Counseling: I had a detailed discussion with the patient and/or guardian regarding: the historical points, exam findings, and any diagnostic results supporting the discharge/admit diagnosis, radiology results, the need for outpatient follow up, to return to the emergency department if symptoms worsen or persist or if there are any questions or concerns that arise at home. Special discussion: I discussed with the patient/guardian in detail that at this point there is no indication for admission to the hospital. It is understood, however, that if the symptoms persist or worsen the patient needs to return immediately for re-evaluation. Further emergent ED testing is not indicated at this point in time. I discussed with the patient/guardian in detail the need to arrange with the PCP or specialist further outpatient testing, MRI, Based on the history and exam findings, there is no indication for further emergent testing or inpatient evaluation. I discussed with the patient/guardian the need to see the orthopedic surgeon for further evaluation of the symptoms. 02/08 11:33 Order name: Hip Right 2 View XRAY; Complete Time: 12:11 vg1 Administered Medications: 13:14 Not Given (Pt left prior to administration ): traMADol 50 mg PO once ss Disposition Summary: 02/08/22 12:28 Discharge Ordered Location: Home rn Problem: new rn Symptoms: are unchanged rn Condition: Stable rn Diagnosis - Strain of muscle, fascia and tendon of right hip rn Followup: rn - With: Behzad Ewing MD - When: 2 - 3 days - Reason: Recheck today's complaints, Re-evaluation by your physician Discharge Instructions: - Discharge Summary Sheet rn - Hip Sprain rn Forms: - Medication Reconciliation Form rn - Thank You Letter rn - Antibiotic rn psychiatric - Prescription Opioid Use rn Prescriptions: - Tramadol 50 mg Oral Tablet - take 1 tablet by ORAL route every 8 hours as needed; 12 tablet; Refills: 0, rn Product Selection Permitted Signatures: Dispatcher [employer] Buzz Almeida MD MD rn Garcia, Victoria, RN RN vg1 Andreea Martin RN ss
[2022-02-08 13:18] VITALS: BP 130/71; TEMP 98.2; O2SAT 98
== END 2022-02-08 13:13 | disposition home or self-care (01) ==
LOC: ER 10:52
DX: S76.011A Strain of muscle, fascia and tendon of right hip, initial encounter (principal); X50.9XXA Other and unspecified overexertion or strenuous movements or postures, initial encounter; Y93.89 Activity, other specified; Y92.9 Unspecified place or not applicable; Z91.09 Other allergy status, other than to drugs and biological substances; Z91.013 Allergy to seafood; E11.9 Type 2 diabetes mellitus without complications; K21.9 Gastro-esophageal reflux disease without esophagitis; I25.2 Old myocardial infarction
CPT/HCPCS: 99283

== ENCOUNTER 2022-03-08 14:17 | Observation (INO) | payer OTHER ==
[2022-03-08 17:14] LABS: Protime INR 0.92
--- NOTE | 2022-03-08 17:28 | RAD REPORT ---
EXAM DESCRIPTION: RAD - Chest Single View - 03/08/2022 4:29 pm CLINICAL HISTORY: CHEST PAIN COMPARISON: Portable March 2020 TECHNIQUE: AP portable chest image was obtained 03/08/2022 4:29 pm . FINDINGS: Lungs are clear. Heart and vasculature are normal. No measurable pleural effusion and no p neumothorax. No acute bony abnormality seen. No acute aortic findings suspected. IMPRESSION: No acute cardiopulmonary process.
[2022-03-08 17:32] LABS: ALT/SGPT 22 U/L (12-78); AST/SGOT 7 U/L (15-37); Albumin 3.8 g/dL (3.4-5.0); Alkaline Phosphatase 66 U/L (45-117); BUN Blood Urea Nitrogen 20 mg/dL (7-18); Bicarbonate 27 mmol/L (21-32); Bilirubin Total 0.2 mg/dL (0.2-1.0); Glomerular Filtration Rate 100 ml/min (=/>90); Glucose Level 151 mg/dL (74-106); Lipase 121 U/L (73-393); Magnesium 2.1 mg/dL (1.8-2.4); NT PRO-BNP 53 pg/mL (<125); Protein, Total 7.7 g/dL (6.4-8.2); Sodium Level 138 mmol/L (136-145)
[2022-03-08 17:33] LABS: Hematocrit 45.2 % (36.0-45.0); Lymphocytes % 29.1 % (15.3-44.8); MCV 88.1 fL (80-100); MPV 9.1 fL (7.6-11.3); RBC Red Blood Cell Count 5.13 M/uL (3.86-4.86)
[2022-03-08 17:47] LABS: Bilirubin Direct < 0.1 mg/dL (0-0.2); Troponin High Sensitivity < 3.0 pg/mL (<58.9)
[2022-03-08 18:05] LABS: Urine Blood Negative (Negative); Urine Glucose 2+ (Negative); Urine Protein Negative (Negative); Urine Specific Gravity >=1.030 (1.005-1.030); Urine pH 5.5 (5.0-7.0)
[2022-03-08 18:23] LABS: Urine Bacteria NONE SEEN /HPF (<20); Urine RBC <5 /HPF (NONE SEEN)
--- NOTE | 2022-03-08 19:31 | EDPHYS ---
Physician Documentation [facility] Name: Khalida Lundberg Age: 61 yrs Sex: Female : 1960 Arrival Date: 03/08/2022 Time: 14:19 Bed 25 Private MD: Estrada Fitch R ED Physician Buzz Gusman HPI: 03/08 16:20 This 61 yrs old Female presents to ER via Ambulatory with complaints of Chest cp Pain. 16:20 The patient or guardian reports chest pain that is located primarily in the substernal cp area, epigastric area. Onset: 3 day(s) ago. The pain radiates to back. Associated signs and symptoms: Pertinent negatives: cough, dizziness, lower extremity pain, lower extremity swelling, shortness of breath, syncope, vomiting. The chest pain is described as dull, stabbing. Duration: The patient or guardian reports multiple episodes, that wax and wane. 16:22 Patient reports chest pain similar to pain with previous NM. cp Historical: - Allergies: 14:22 Iodine; ap3 14:22 SEAFOOD; ap3 - PMHx: 14:22 Diabetes - NIDDM; GERD; Hypertension; Myocardial infarction; ap3 - Immunization history:: Client reports having NOT received the Covid vaccine. - Social history:: Smoking status: Patient denies any tobacco usage or history of. ROS: 16:25 Constitutional: Negative for body aches, chills, fever, poor PO intake. cp 16:25 Cardiovascular: Positive for chest pain, Negative for edema, palpitations. cp 16:25 Respiratory: Negative for cough, shortness of breath, wheezing. 16:25 Abdomen/GI: Negative for abdominal pain, nausea, vomiting, and diarrhea. 16:25 Eyes: Negative for injury, pain, redness, and discharge. cp 16:25 Back: Negative for injury or acute deformity. cp 16:25 Neuro: Negative for altered mental status, dizziness, headache, weakness. 16:25 All other systems are negative. Exam: 14:45 ECG was reviewed by the Attending Physician. cp 16:30 Constitutional: The patient appears in no acute distress, alert, awake, cp non-diaphoretic, non-toxic, well developed, well nourished. 16:30 Head/Face: Normocephalic, atraumatic. cp 16:30 Eyes: Periorbital structures: appear normal, Conjunctiva: normal, no exudate, no injection, Sclera: no appreciated abnormality, Lids and lashes: appear normal, bilaterally. 16:30 ENT: External ear(s): are unremarkable, Nose: is normal, Mouth: Lips: moist, Oral mucosa: moist, Posterior pharynx: Airway: no evidence of obstruction, patent. 16:30 Neck: ROM/movement: is normal, is supple, without pain, no range of motions limitations. 16:30 Chest/axilla: Inspection: normal. 16:30 Cardiovascular: Rate: normal, Rhythm: regular, Edema: is not appreciated, JVD: is not appreciated. 16:30 Respiratory: the patient does not display signs of respiratory distress, Respirations: normal, no use of accessory muscles, no retractions, labored breathing, is not present, Breath sounds: are clear throughout, no decreased breath sounds, no stridor, no wheezing. 16:30 Abdomen/GI: Inspection: abdomen appears normal, Bowel sounds: active, all quadrants, Palpation: abdomen is soft and non-tender, in all quadrants. 16:30 Back: CVA tenderness, is absent. 16:30 Skin: cellulitis, is not appreciated, no rash present. 16:30 Neuro: Orientation: to person, place \\T\\ time. Mentation: is normal, Cerebellar function: is grossly normal, Motor: moves all fours, strength is normal, Sensation: is normal. Vital Signs: 14:23 BP 126 / 66; Pulse 73; Resp 17; Temp 97.2; Pulse Ox 100% ; Weight 86.18 kg; Height 5 ap3 ft. 2 in. (157.48 cm); Pain 6/10; 20:15 BP 112 / 58; Pulse 75; Resp 16; Pulse Ox 99% on R/A; jb4 21:40 BP 116 / 61; Pulse 62; Resp 22; Pulse Ox 97% on R/A; jb4 14:23 Body Mass Index 34.75 (86.18 kg, 157.48 cm) ap3 MDM: 18:35 Data reviewed: vital signs, nurses notes, lab test result(s), EKG, radiologic studies, cp plain films. 18:35 Test interpretation: by ED physician or midlevel provider: ECG, plain radiologic cp studies. Physician consultation: Buzz Gusman MD recommends admission for cardiac r/o. 19:18 Patient medically screened. 19:25 Counseling: I had a detailed discussion with the patient and/or guardian regarding: the historical points, exam findings, and any diagnostic results supporting the discharge/admit diagnosis, lab results, radiology results, the need for further work-up and treatment in the hospital. 19:25 Physician consultation: Lory WILSON was contacted at 19:25, regarding admission, to the telemetry unit. patient's condition. 03/08 16:20 Order name: Basic Metabolic Panel; Complete Time: 18:10 03/08 18:28 Interpretation: Normal except: GLUC 151; BUN 20. 03/08 16:20 Order name: CBC with Diff; Complete Time: 18:10 03/08 18:28 Interpretation: Normal except: RBC 5.13; HCT 45.2. 03/08 16:20 Order name: LFT's; Complete Time: 18:10 03/08 18:29 Interpretation: Normal except: AST 7; GLOB 3.9; A/G 1.0. 03/08 16:20 Order name: Magnesium; Complete Time: 18:10 03/08 16:20 Order name: NT PRO-BNP; Complete Time: 18:10 03/08 16:20 Order name: PT-INR; Complete Time: 18:10 03/08 16:20 Order name: Troponin HS; Complete Time: 18:10 03/08 18:29 Interpretation: Troponin HS < 3.0; Reviewed. 03/08 16:20 Order name: Lipase; Complete Time: 18:10 03/08 16:20 Order name: COVID-19 SARS RT PCR (Document "Date of Onset" if Symptomatic) 03/08 16:20 Order name: Urine Microscopic Only; Complete Time: 18:28 03/08 18:05 Order name: Urine Dipstick-Ancillary; Complete Time: 18:10 EDDE 03/08 20:43 Order name: Troponin High Sensitivity [facility] 03/08 20:43 Order name: Troponin High Sensitivity [facility] 03/08 20:43 Order name: Troponin High Sensitivity [facility] 03/08 16:20 Order name: XRAY Chest (1 view); Complete Time: 18:10 03/08 16:20 Order name: EKG; Complete Time: 16:20 03/08 16:20 Order name: Cardiac monitoring; Complete Time: 19:38 03/08 16:20 Order name: EKG - Nurse/Tech; Complete Time: 19:28 03/08 16:20 Order name: IV Saline Lock; Complete Time: 16:55 03/08 16:20 Order name: Labs collected and sent; Complete Time: 16:55 03/08 16:20 Order name: O2 Per Protocol; Complete Time: 19:38 03/08 16:20 Order name: O2 Sat Monitoring; Complete Time: 19:38 03/08 16:20 Order name: Urine Dipstick-Ancillary (obtain specimen); Complete Time: 19:26 03/08 23:52 Order name: Glucose, Ancillary Testing EDDE 03/09 04:47 Order name: Lipid Profile EDDE 03/09 04:47 Order name: Thyroid Stimulating Hormone EDDE 03/09 04:54 Order name: Hemoglobin A1c EDDE EC:45 Rate is 68 beats/min. Rhythm is regular. AL interval is normal. QRS interval is normal. cp QT interval is normal. T waves are Inverted in leads III, aVR. Interpreted by me. Reviewed by me. Administered Medications: 19:50 Not Given (Patient Refused): morphine 2 mg IVP once over 4 mins aa9 Disposition: 03/09 18:47 Co-signature as Attending Physician, Buzz Gusman MD. rn Disposition Summary: 03/08/22 19:31 Hospitalization Ordered Hospitalization Status: Observation cp Provider: Lory Munoz cp Condition: Stable cp Problem: new cp Symptoms: have improved cp Bed/Room Type: Standard cp Location: Telemetry/MedSurg (Inpatient)(03/09/22 08:03) kj1 Room Assignment: 429(03/09/22 08:03) kj1 Diagnosis - Chest pain, unspecified cp Forms: - Medication Reconciliation Form cp - SBAR form cp Signatures: Dispatcher [employer] [facility] Buzz Gusman MD MD rn Page, Corey, PA PA cp Garcia, Cindy RN Rody Soriano RN RN Faviola Hernandez kj1 Lory Munoz PA PA sb3 Avalos, Aylin RN aa9 Corrections: (The following items were deleted from the chart) 03/08 20:14 19:31 Telemetry/MedSurg (observation) cg : 19:31 cg 03/09 08:03 03/08 20:14 [facility] kj1 03/09 08:03 03/08 20:14 [facility] kj1
--- NOTE | 2022-03-08 19:31 | ER ---
Nurse's Notes [facility] Name: Khalida Lundberg Age: 61 yrs Sex: Female : 1960 Arrival Date: 03/08/2022 Time: 14:19 Bed 25 Private MD: Estrada Fitch R Diagnosis: Chest pain, unspecified Presentation: 03/08 14:21 Chief complaint: Patient states: she has been having chest pain for approx 3 days now. ap3 Patient states the pain was initially more centralized in her chest, and now it has migrated more to the left side of her chest. Patient denies cough, congestion, or shortness of breath. Coronavirus screen: At this time, the client does not indicate any symptoms associated with coronavirus-19. Ebola Screen: No symptoms or risks identified at this time. Initial Sepsis Screen: Does the patient meet any 2 criteria? No. Patient's initial sepsis screen is negative. Does the patient have a suspected source of infection? No. Patient's initial sepsis screen is negative. Risk Assessment: Do you want to hurt yourself or someone else? Patient reports no desire to harm self or others. Onset of symptoms was March 05, 2022. 14:21 Method Of Arrival: Ambulatory ap3 14:23 Acuity: TEVIN 3 ap3 Triage Assessment: 14:23 General: Appears in no apparent distress. Behavior is calm, cooperative, appropriate ap3 for age. Pain: Complains of pain in right breast Pain radiates to left breast Pain began 2-3 days ago. Neuro: Level of Consciousness is awake, alert, obeys commands, Oriented to person, place, time, situation, Appropriate for age Gait is steady. Cardiovascular: Reports chest pain. Respiratory: Airway is patent Respiratory effort is even, unlabored. Historical: - Allergies: 14:22 Iodine; ap3 14:22 SEAFOOD; ap3 - PMHx: 14:22 Diabetes - NIDDM; GERD; Hypertension; Myocardial infarction; ap3 - Immunization history:: Client reports having NOT received the Covid vaccine. - Social history:: Smoking status: Patient denies any tobacco usage or history of. Screenin:24 Abuse screen: Denies threats or abuse. Nutritional screening: No deficits noted. ap3 Tuberculosis screening: No symptoms or risk factors identified. 22:00 Fall Risk None identified. jb4 Assessment: 20:00 Reassessment: Patient appears in no apparent distress at this time. Patient and/or jb4 family updated on plan of care and expected duration. Pain level reassessed. Patient is alert, oriented x 3, equal unlabored respirations, skin warm/dry/pink. 21:00 Reassessment: Patient appears in no apparent distress at this time. Patient and/or jb4 family updated on plan of care and expected duration. Pain level reassessed. Patient is alert, oriented x 3, equal unlabored respirations, skin warm/dry/pink. 22:00 Reassessment: Patient appears in no apparent distress at this time. Patient and/or jb4 family updated on plan of care and expected duration. Pain level reassessed. Patient is alert, oriented x 3, equal unlabored respirations, skin warm/dry/pink. Vital Signs: 14:23 BP 126 / 66; Pulse 73; Resp 17; Temp 97.2; Pulse Ox 100% ; Weight 86.18 kg; Height 5 ap3 ft. 2 in. (157.48 cm); Pain 6/10; 20:15 BP 112 / 58; Pulse 75; Resp 16; Pulse Ox 99% on R/A; jb4 21:40 BP 116 / 61; Pulse 62; Resp 22; Pulse Ox 97% on R/A; jb4 14:23 Body Mass Index 34.75 (86.18 kg, 157.48 cm) ap3 ED Course: 14:19 Patient arrived in ED. rg4 14:24 Triage completed. ap3 14:24 Arm band placed on left wrist. ap3 14:24 Patient maintains SpO2 saturation greater than 95% on room air. ap3 14:43 Antonio Mccarthy PA is PHCP. cp 14:43 Buzz Gusman MD is Attending Physician. cp 16:29 XRAY Chest (1 view) In Process Unspecified. EDMS 16:54 Inserted saline lock: 20 gauge in left antecubital area, using aseptic technique. Blood zm collected. 16:54 Lipase Sent. zm 16:55 LFT's Sent. zm 16:55 CBC with Diff Sent. zm 16:55 Basic Metabolic Panel Sent. zm 16:55 Magnesium Sent. zm 16:55 NT PRO-BNP Sent. zm 16:55 PT-INR Sent. zm 16:55 Troponin HS Sent. zm 18:37 Estrada Fitch MD is Private Physician. cp 19:18 Attending Physician role handed off by Buzz Gusman MD [facility] 19:18 Antonio Rodriguez MD is Attending Physician. [facility] 19:21 Buzz Gusman MD is Attending Physician. cp 19:26 Marcelo Gilbert, RN is Primary Nurse. as6 19:30 Lory Munoz PA is Hospitalizing Provider. cp 19:41 Patient has correct armband on for positive identification. Bed in low position. Call aa9 light in reach. Side rails up X2. Client placed on continuous cardiac and pulse oximetry monitoring. NIBP monitoring applied. 22:00 No provider procedures requiring assistance completed. Patient admitted, IV remains in jb4 place. Administered Medications: 19:50 Not Given (Patient Refused): morphine 2 mg IVP once over 4 mins aa9 Medication: 22:00 VIS not applicable for this client. jb4 Outcome: 19:31 Decision to Hospitalize by Provider. cp 22:00 Admitted to ER Hold. Please see [facility] for further documentation. jb4 22:00 Condition: stable 22:00 Discharge instructions given to patient, Instructed on the need for admit, Demonstrated understanding of instructions. 03/09 08:33 Patient left the ED. ss Signatures: Dispatcher [employer] EDMS Antonio Rodriguez MD MD cha Smirch, Shelby, RN RN ss Antonio Mccarthy PA PA cp Garcia, Rubi 4 Angel Andres, RN RN jb4 Rody Cooper RN RN ap3 Marcelo Gilbert, OVI DIOR as6 Berna Chavez Aylin, RN RN aa9
[2022-03-08] MEDS ORDERED: MORPHINE 2 MG/ML SYR ONE (19:51)
[2022-03-08] MEDS ORDERED: cloNIDine HCL 0.1 MG TAB ONE (20:24)
[2022-03-08] MEDS ORDERED: ASPIRIN EC 81 MG TAB PO ONE ×2 (20:41→23:54)
--- NOTE | 2022-03-08 22:50 | P.HP ---
Certification for Inpatient Patient admitted to: Observation With expected LOS: <2 Midnights Patient will require the following post-hospital care: None Practitioner: I am a practitioner with admitting privileges, knowledge of patient current condition, hospital course, and medical plan of care. Services: Services provided to patient in accordance with Admission requirements found in Title 42 Section 412.3 of the Code of Federal Regulations Patient History Date of Service: 03/09/22 Primary Care Provider: Constantine Reason for admission: Chest Pain History of Present Illness: Patient is a 61-year-old female with past medical history of CAD/TN, IDDM, and HTN who presented to the ED with complaints of chest pain x 3 days. She reports that the pain feels similar to her prior TN. She states it is associated with diaphoresis but denies shortness of breath or any radiation. She sees Dr. Downs and had an echo in October that she reports was okay. Her labs in the ED today are WNL. EKG showed NSR. ED provider wishes to admit patient for observation. Allergies iodine Allergy (Mild, Verified 06/16/12 14:55) Anaphylaxis Home medications list reviewed: Yes Home Medications: Aspirin 81 mg PO DAILY 06/21/14 Glyburide/Metformin HCl [Glucovance 2.5-500 mg Tablet] 5 - 500 mg PO BID 06/21/14 Insulin 70/30 NPH/Reg Human [Novolin 70/30*] 20 unit SQ DAILY 06/21/14 Fexofenadine HCl [Sharon Allergy] 1 tab PO DAILY 04/23/20 Losartan Potassium 25 mg PO DAILY 04/23/20 Omeprazole [Prilosec] 40 mg PO DAILY 04/23/20 Ascorbic Acid [Vitamin C] 1,000 mg PO BID #60 tablet 04/25/20 Azithromycin Tab [Zithromax*] 250 mg PO BEDTIME #5 tab 04/25/20 Cholecalciferol (Vitamin D3) [Vitamin D 1000 Iu Tab] 1,000 unit PO DAILY #30 tab 04/25/20 Metoprolol Tartrate [Lopressor*] 50 mg PO BID 6AM 6PM #60 tab 04/25/20 Zinc Gluconate [Zinc Gluconate*] 50 mg PO BID #60 tab 04/25/20 predniSONE [Prednisone*] 20 mg PO BID #20 tab 04/25/20 - Past Medical/Surgical History Diabetic: Yes -: Type 2 Diabetes- Insulin Dependent -: hypertension -: Hyperlipidemia -: TN -: cardiac catheterization Psychosocial/ Personal History: Lives at home with family. - Family History Sister -: Heart disease, Diabetes, Kidney disease Mother -: Stroke Brother -: Diabetes, Cancer, Liver disease - Social History Smoking Status: Never smoker Alcohol use: No CD- Drugs: No Caffeine use: Yes Place of Residence: Home Review of Systems General: Sweats Cardiovascular: Chest Pain Physical Examination - Studies Laboratory Data (last 24 hrs) 03/08/22 16:51: PT 10.1, INR 0.92 03/08/22 16:51: WBC 6.8, Hgb 14.7, Hct 45.2 H, Plt Count 261 03/08/22 16:51: Sodium 138, Potassium 4.0, BUN 20 H, Creatinine 0.67, Glucose 151 H, Magnesium 2.1, Total Bilirubin 0.2, AST 7 L, ALT 22, Alkaline Phosphatase 66, Lipase 121 Assessment and Plan - Problems (Diagnosis) (1) Chest pain Current Visit: Yes Status: Acute Qualifiers: Chest pain type: chest pain due to myocardial ischemia Ischemic chest pain type: unstable angina pectoris Qualified Code(s): I20.0 - Unstable angina (2) Diabetes mellitus Current Visit: Yes Status: Chronic Qualifiers: Diabetes mellitus type: type 2 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 transplanted heart: [place] heart Associated angina: with unstable angina Qualified Code(s): I25.110 - Atherosclerotic heart disease of [place] coronary artery with unstable angina pectoris - Plan -Initial troponin negative. Continue to trend. -Monitor on telemetry -Patient received 324 mg aspirin. Will continue 81 mg daily. -Cardiology consulted -ACHS accu checks with mild sliding scale insulin and diabetic diet. A1C ordered -Lipid panel and TSH pending -Lovenox for VTE ppx -Full code Discharge Plan: Home Plan to discharge in: 24 Hours - Advance Directives Does patient have a Living Will: No Does patient have a Durable POA for Healthcare: No - Code Status/Comfort Care Code Status Assessed: Yes (Full) Critical Care: No Time Spent Managing Pts Care (In Minutes): 50
[2022-03-08 23:29] VITALS: BMI 34.7
[2022-03-08] MEDS ORDERED: ONDANSETRON 4 MG/2 ML VIAL IV PRN (23:33)
[2022-03-08] MEDS ORDERED: ACETAMINOPHEN 500 MG TAB PO PRN (23:33)
[2022-03-08] MEDS ORDERED: INSULIN -REGULAR HUMAN 50 UNIT/0.5 ML ML SQ SCH (23:33)
[2022-03-08] MEDS ORDERED: ATORVASTATIN 40 MG TAB PO SCH (23:33)
[2022-03-08] MEDS ORDERED: ACETAMINOPHEN 500 MG TAB ONE (23:53)
[2022-03-08] MEDS ORDERED: ATORVASTATIN 20 MG TAB ONE (23:54)
[2022-03-09 04:46] LABS: Thyroid Stimulating Hormone 1.74 uIU/mL (0.360-3.740); Troponin High Sensitivity 3.6 pg/mL (<58.9)
[2022-03-09 04:56] VITALS: O2SAT 96
--- NOTE | 2022-03-09 08:22 | EKG ---
Test Date: 2022-03-08 Test Time: 14:43:39 Lip Cutter: BELTRAN MEASUREMENT RESULTS: Intervals: Rate: 68 AR: 156 QRSD: 86 QT: 398 QTc: 423 [place]: P: 28 AR: 156 QRS: -1 T: 2 INTERPRETIVE STATEMENTS: Normal sinus rhythm Normal ECG Compared to ECG 04/22/2020 19:35:12 Myocardial infarct finding no longer present Electronically Signed On 03-09-22 08:18:30 CDT by Emerson Joshi
[2022-03-09 08:41] VITALS: BP 104/56; TEMP 96.7
[2022-03-09] MEDS ORDERED: ENOXAPARIN 40 MG/0.4 ML SQ SCH (09:00)
[2022-03-09] MEDS ORDERED: ASPIRIN EC 81 MG TAB PO SCH (09:00)
--- NOTE | 2022-03-10 00:43 | CON ---
History Of Present Illness: The patient was brought to the emergency room because of chest pain. He r chest pain radiates to the back. She had no other symptoms. Her chest pain was not exertional, wa s dull and stabbing. Past Medical History: She has diabetes, hypertension, has had a history of CAD. Allergies: SHE IS ALLERGIC TO IODINE. SHE IS TESTED POSITIVE FOR COVID. Family History: Not obtained. Review of Systems: Not obtained. Social History: Not obtained. Laboratory Data: She had an EKG that was normal. She had a chest x-ray that was normal. All her di agnostic data other than what is stated above were within normal limits. Her glucose was slightly el evated at 146 with a hemoglobin of 8.5. Her cholesterol was 238, her triglycerides 161 with an LDL o f 148. Assessment/plan: She takes aspirin, Lipitor, Synjardy, insulin, losartan, and metoprolol at home. I believe her symptoms are noncardiac in nature. I am comfortable with her going home whenever it is okay with Dr. Gusman and we will see her in the office as an outpatient. ZIGGY/STEPHANIE Voice ID: [id number] Report ID: [id number]
== END 2022-03-09 11:40 | disposition home or self-care (01) ==
LOC: ER 14:17 → ERHOLD 20:38 → 4TH 03-09 08:10
PROVIDERS: ADMIT Hospitalist; ATTEND Hospitalist
DX: I25.110 Atherosclerotic heart disease of native coronary artery with unstable angina pectoris (principal); U07.1 COVID-19; I10 Essential (primary) hypertension; E11.65 Type 2 diabetes mellitus with hyperglycemia; I25.2 Old myocardial infarction; E78.5 Hyperlipidemia, unspecified; K21.9 Gastro-esophageal reflux disease without esophagitis; Z28.310 Unvaccinated for COVID-19; Z79.82 Long term (current) use of aspirin; Z79.4 Long term (current) use of insulin; Z79.899 Other long term (current) drug therapy; Z91.013 Allergy to seafood; Z82.49 Family history of ischemic heart disease and other diseases of the circulatory system; Z82.3 Family history of stroke; Z80.9 Family history of malignant neoplasm, unspecified; Z83.79 Family history of other diseases of the digestive system; Z83.3 Family history of diabetes mellitus
CPT/HCPCS: 93005; 85025; 80048; 36415; 83735; 85610; 80061; 82947 ×2; 80076; 84443; 83036; 84484 ×3; 83690; 83880; 71045; U0003; J2270; G0378 ×3; 81003; 81015; 99285